=== PATIENT | male | born 1955 | race Caucasian/White ===

== ENCOUNTER 2020-05-28 20:15 | Inpatient (IN) | payer MEDICARE, MEDICAID ==
[2020-05-28] MEDS: Sodium Chloride 0.9% 1,000 ML IV SCH (22:30)
[2020-05-28] MEDS ORDERED: Dextrose 50% Abboject 50 ML SYRINGE IVP PRN (22:30)
[2020-05-28] MEDS ORDERED: Dextrose 5% in Water 1,000 ML IV PRN (22:30)
[2020-05-28] MEDS ORDERED: Zolpidem Tartrate 5 MG TAB PO SCH (23:00)
[2020-05-28] MEDS: HYDROcodone/Acetaminophen 5/325 mg Tablet PO PRN (23:19)
[2020-05-29] MEDS: Vancomycin 1.5 GRAM/300 ML BAG 1.5 GM in Premix Bag 1 BAG IVPB SCH ×2 (00:51→13:46)
[2020-05-29 05:19] LABS: Anion Gap 12 mmol/L (10-20); BUN (Urea Nitrogen) 9 mg/dL (8.4-25.7); Calc. Creatinine Clearance 160 mL/min (70-130); Calcium 8.4 mg/dL (7.8-10.44); Carbon Dioxide 25 mmol/L (23-31); Chloride 100 mmol/L (98-107); Glucose 218 mg/dL (80-115); Potassium 4.2 mmol/L (3.5-5.1); Sodium 133 mmol/L (136-145)
[2020-05-29 05:30] LABS: Band 16 % (5-11); Eosinophils 7 % (0-10); Hemoglobin 9.5 g/dL (14.0-18.0); Lymphocytes 32 % (21-51); MDiff Complete? YES; Mean Corpuscular Hemoglobin 29.4 pg (27.0-31.0); Mean Corpuscular Volume 91.8 fL (78.0-98.0); Mean Platelet Volume 6.4 fL (7.4-10.4); Metamyelocyte 6 % (0-0); Monocytes 7 % (0-10); Neutrophil 32 % (42-75); Platelet Count 182 thou/uL (130-400); Platelet Morphology Comment Appears Adequate; RBC Distribution Width 14.1 % (11.5-14.5); RBC Morphology Normal; Red Blood Cell (RBC) Count 3.22 mill/uL (4.70-6.10); White Blood Cell (WBC) Count 3.3 thou/uL (4.8-10.8)
[2020-05-29] MEDS: Levothyroxine 150 MCG TAB PO SCH (06:15)
[2020-05-29] MEDS: HYDROcodone/Acetaminophen 5/325 mg Tablet PO PRN ×3 (06:26→20:52)
[2020-05-29] MEDS: HumaLOG 300 UNITS/3 ML VIAL SC PRN ×3 (06:27→17:11)
[2020-05-29] MEDS ORDERED: Nicotine 14 MG PATCH TOP SCH (09:00)
[2020-05-29] MEDS: Finasteride 5 MG TAB PO SCH (09:12)
[2020-05-29] MEDS: Multivitamin W/ Minerals 1 TAB PO SCH (09:12)
[2020-05-29] MEDS: Famotidine 20 MG TAB PO SCH ×2 (09:13→20:50)
[2020-05-29] MEDS: Amlodipine 5 MG TAB PO SCH (09:13)
[2020-05-29] MEDS: Thiamine 100 MG TAB PO SCH (09:13)
[2020-05-29] MEDS: Aspirin 81 mg Enteric Coated Tablet PO SCH (09:14)
[2020-05-29] MEDS: Pioglitazone HCl 15 MG TAB PO SCH (09:14)
[2020-05-29] MEDS: Escitalopram Oxalate 20 mg Tablet PO SCH (09:14)
[2020-05-29] MEDS: Folic Acid 1 MG TAB PO SCH (09:14)
[2020-05-29] MEDS: Senokot S 8.6-50 MG TAB PO SCH ×2 (09:15→20:50)
[2020-05-29] MEDS: Lisinopril 20 MG TAB PO SCH ×2 (09:15→20:50)
[2020-05-29] MEDS: Polyethylene Glycol 3350 17 GM Packet PO SCH (09:15)
[2020-05-29] MEDS: Enoxaparin Sodium 40 MG/0.4 ML SYRINGE SC SCH (09:18)
[2020-05-29] MEDS: Lantus 1000 UNITS/10 ML VIAL SC SCH ×2 (09:20→20:47)
[2020-05-29] MEDS: Ondansetron PF 4 MG/2 ML Vial IVP PRN (09:45)
[2020-05-29] MEDS: Sodium Chloride 0.9% 1,000 ML IV SCH ×2 (12:13→19:32)
[2020-05-29] MEDS: cefTRIAXone\\ROCEPHIN 1 GM in Sodium Chloride 0.9% 100 ML IVPB SCH (12:13)
[2020-05-29] MEDS ORDERED: cefTRIAXone\\ROCEPHIN 1 GM VIAL IVPB SCH (15:00)
[2020-05-29] MEDS: Zolpidem Tartrate 5 MG TAB PO SCH (20:49)
[2020-05-29] MEDS: Tamsulosin HCl 0.4 MG CAP PO SCH (20:50)
[2020-05-29] MEDS: Atorvastatin Calcium 40 MG TAB PO SCH (20:52)
[2020-05-29] MEDS ORDERED: Zolpidem Tartrate 5 MG TAB PO SCH (21:00)
[2020-05-29] MEDS ORDERED: Lisinopril 5 MG TAB PO SCH (21:00)
[2020-05-29] MEDS ORDERED: Famotidine 20 MG TAB PO SCH (21:00)
[2020-05-29] MEDS ORDERED: Senokot S 8.6-50 MG TAB PO SCH (21:00)
[2020-05-29] MEDS ORDERED: Tamsulosin HCl 0.4 MG CAP PO SCH (21:00)
[2020-05-29] MEDS ORDERED: Atorvastatin Calcium 40 MG TAB PO SCH (21:00)
[2020-05-29] MEDS ORDERED: Lantus 1000 UNITS/10 ML VIAL SC SCH (21:00)
[2020-05-30] MEDS: Vancomycin 1.5 GRAM/300 ML BAG 1.5 GM in Premix Bag 1 BAG IVPB SCH ×2 (00:50→14:01)
[2020-05-30] MEDS: Sodium Chloride 0.9% 1,000 ML IV SCH ×4 (00:53→23:32)
[2020-05-30] MEDS ORDERED: Vancomycin 1.5 GRAM/300 ML BAG IVPB SCH (01:00)
[2020-05-30] MEDS: Levothyroxine 150 MCG TAB PO SCH (05:08)
[2020-05-30] MEDS: HYDROcodone/Acetaminophen 5/325 mg Tablet PO PRN ×4 (05:08→20:57)
[2020-05-30] MEDS: Morphine 4 MG/ML VIAL SLOW IVP PRN (08:31)
[2020-05-30] MEDS: Lisinopril 20 MG TAB PO SCH ×2 (09:00→20:58)
[2020-05-30] MEDS ORDERED: Multivitamin W/ Minerals 1 TAB PO SCH (09:00)
[2020-05-30] MEDS ORDERED: Aspirin 81 mg Enteric Coated Tablet PO SCH (09:00)
[2020-05-30] MEDS ORDERED: Levothyroxine 150 MCG TAB PO SCH (09:00)
[2020-05-30] MEDS ORDERED: Folic Acid 1 MG TAB PO SCH (09:00)
[2020-05-30] MEDS ORDERED: Finasteride 5 MG TAB PO SCH (09:00)
[2020-05-30] MEDS ORDERED: Amlodipine 5 MG TAB PO SCH (09:00)
[2020-05-30] MEDS ORDERED: Thiamine 100 MG TAB PO SCH (09:00)
[2020-05-30] MEDS ORDERED: Escitalopram Oxalate 20 mg Tablet PO SCH (09:00)
[2020-05-30] MEDS: Folic Acid 1 MG TAB PO SCH (09:00)
[2020-05-30] MEDS ORDERED: Enoxaparin Sodium 40 MG/0.4 ML SYRINGE SC SCH (09:00)
[2020-05-30] MEDS: Pioglitazone HCl 15 MG TAB PO SCH (09:00)
[2020-05-30] MEDS: Multivitamin W/ Minerals 1 TAB PO SCH (09:01)
[2020-05-30] MEDS: Famotidine 20 MG TAB PO SCH ×2 (09:01→20:56)
[2020-05-30] MEDS: Escitalopram Oxalate 20 mg Tablet PO SCH (09:01)
[2020-05-30] MEDS: Senokot S 8.6-50 MG TAB PO SCH ×2 (09:01→20:56)
[2020-05-30] MEDS: Aspirin 81 mg Enteric Coated Tablet PO SCH (09:01)
[2020-05-30] MEDS: Finasteride 5 MG TAB PO SCH (09:01)
[2020-05-30] MEDS: Thiamine 100 MG TAB PO SCH (09:02)
[2020-05-30] MEDS: Amlodipine 5 MG TAB PO SCH (09:02)
[2020-05-30] MEDS: Enoxaparin Sodium 40 MG/0.4 ML SYRINGE SC SCH (09:03)
[2020-05-30] MEDS: Lantus 1000 UNITS/10 ML VIAL SC SCH ×2 (09:04→20:59)
[2020-05-30] MEDS: Polyethylene Glycol 3350 17 GM Packet PO SCH (09:04)
[2020-05-30] MEDS: cefTRIAXone\\ROCEPHIN 1 GM in Sodium Chloride 0.9% 100 ML IVPB SCH (11:59)
[2020-05-30] MEDS: HumaLOG 300 UNITS/3 ML VIAL SC PRN ×3 (12:00→20:59)
[2020-05-30 12:26] LABS: Vancomycin, Trough 14.1 ug/mL
[2020-05-30] MEDS: Tamsulosin HCl 0.4 MG CAP PO SCH (20:56)
[2020-05-30] MEDS: Atorvastatin Calcium 40 MG TAB PO SCH (20:56)
[2020-05-30] MEDS: Zolpidem Tartrate 5 MG TAB PO SCH (20:58)
[2020-05-31] MEDS: Vancomycin 1.5 GRAM/300 ML BAG 1.5 GM in Premix Bag 1 BAG IVPB SCH ×2 (01:02→13:30)
[2020-05-31] MEDS: HYDROcodone/Acetaminophen 5/325 mg Tablet PO PRN ×4 (02:49→20:53)
[2020-05-31] MEDS: HumaLOG 300 UNITS/3 ML VIAL SC PRN ×3 (06:13→20:54)
[2020-05-31] MEDS: Levothyroxine 150 MCG TAB PO SCH (06:13)
[2020-05-31] MEDS: Enoxaparin Sodium 40 MG/0.4 ML SYRINGE SC SCH (08:41)
[2020-05-31] MEDS: Lisinopril 20 MG TAB PO SCH ×2 (08:41→20:52)
[2020-05-31] MEDS: Multivitamin W/ Minerals 1 TAB PO SCH (08:41)
[2020-05-31] MEDS: Famotidine 20 MG TAB PO SCH ×2 (08:42→20:52)
[2020-05-31] MEDS: Folic Acid 1 MG TAB PO SCH (08:42)
[2020-05-31] MEDS: Thiamine 100 MG TAB PO SCH (08:42)
[2020-05-31] MEDS: Escitalopram Oxalate 20 mg Tablet PO SCH (08:42)
[2020-05-31] MEDS: Aspirin 81 mg Enteric Coated Tablet PO SCH (08:42)
[2020-05-31] MEDS: Amlodipine 5 MG TAB PO SCH (08:42)
[2020-05-31] MEDS: Pioglitazone HCl 15 MG TAB PO SCH (08:42)
[2020-05-31] MEDS: Finasteride 5 MG TAB PO SCH (08:42)
[2020-05-31] MEDS: Lantus 1000 UNITS/10 ML VIAL SC SCH ×2 (08:44→20:54)
[2020-05-31] MEDS: Senokot S 8.6-50 MG TAB PO SCH ×2 (08:44→20:52)
[2020-05-31] MEDS: Polyethylene Glycol 3350 17 GM Packet PO SCH (08:44)
[2020-05-31] MEDS: Sodium Chloride 0.9% 1,000 ML IV SCH ×3 (08:58→23:23)
[2020-05-31] MEDS: cefTRIAXone\\ROCEPHIN 1 GM in Sodium Chloride 0.9% 100 ML IVPB SCH (12:08)
[2020-05-31] MEDS: Tamsulosin HCl 0.4 MG CAP PO SCH (20:52)
[2020-05-31] MEDS: Zolpidem Tartrate 5 MG TAB PO SCH (20:52)
[2020-05-31] MEDS: Atorvastatin Calcium 40 MG TAB PO SCH (20:52)
[2020-06-01] MEDS: Vancomycin 1.5 GRAM/300 ML BAG 1.5 GM in Premix Bag 1 BAG IVPB SCH ×3 (01:13→13:22)
[2020-06-01] MEDS: Sodium Chloride 0.9% 1,000 ML IV SCH ×2 (01:13→07:00)
[2020-06-01] MEDS: HYDROcodone/Acetaminophen 5/325 mg Tablet PO PRN ×3 (03:28→17:29)
[2020-06-01] MEDS: Levothyroxine 150 MCG TAB PO SCH (06:15)
[2020-06-01] MEDS: HumaLOG 300 UNITS/3 ML VIAL SC PRN ×3 (06:15→20:55)
[2020-06-01] MEDS: Amlodipine 5 MG TAB PO SCH (09:20)
[2020-06-01] MEDS: Folic Acid 1 MG TAB PO SCH (09:20)
[2020-06-01] MEDS: Finasteride 5 MG TAB PO SCH (09:20)
[2020-06-01] MEDS: Thiamine 100 MG TAB PO SCH (09:20)
[2020-06-01] MEDS: Multivitamin W/ Minerals 1 TAB PO SCH (09:20)
[2020-06-01] MEDS: Famotidine 20 MG TAB PO SCH ×2 (09:20→20:56)
[2020-06-01] MEDS: Pioglitazone HCl 15 MG TAB PO SCH (09:20)
[2020-06-01] MEDS: Aspirin 81 mg Enteric Coated Tablet PO SCH (09:21)
[2020-06-01] MEDS: Lisinopril 20 MG TAB PO SCH ×2 (09:21→20:56)
[2020-06-01] MEDS: Escitalopram Oxalate 20 mg Tablet PO SCH (09:21)
[2020-06-01] MEDS: Lantus 1000 UNITS/10 ML VIAL SC SCH ×2 (09:22→20:54)
[2020-06-01] MEDS: Enoxaparin Sodium 40 MG/0.4 ML SYRINGE SC SCH (09:22)
[2020-06-01] MEDS: Polyethylene Glycol 3350 17 GM Packet PO SCH (09:23)
[2020-06-01] MEDS: Senokot S 8.6-50 MG TAB PO SCH ×2 (09:23→20:57)
[2020-06-01 12:22] LABS: Carbon Dioxide 18 mmol/L (23-31); Chloride 104 mmol/L (98-107); Potassium 4.8 mmol/L (3.5-5.1)
[2020-06-01 12:23] LABS: BUN (Urea Nitrogen) 12 mg/dL (8.4-25.7); Calc. Creatinine Clearance 162 mL/min (70-130); Glucose 212 mg/dL (80-115)
[2020-06-01 12:24] LABS: Calcium 8.2 mg/dL (7.8-10.44)
[2020-06-01] MEDS: cefTRIAXone\\ROCEPHIN 1 GM in Sodium Chloride 0.9% 100 ML IVPB SCH (12:31)
[2020-06-01 12:41] LABS: Band 9 % (5-11); Eosinophils 7 % (0-10); Hemoglobin 9.7 g/dL (14.0-18.0); Lymphocytes 53 % (21-51); MDiff Complete? YES; Mean Corpuscular Hemoglobin 30.7 pg (27.0-31.0); Mean Corpuscular Volume 92.9 fL (78.0-98.0); Mean Platelet Volume 7.1 fL (7.4-10.4); Monocytes 9 % (0-10); Myelocyte 1 % (0-0); Neutrophil 19 % (42-75); Platelet Count 152 thou/uL (130-400); Platelet Morphology Comment Appears Adequate; RBC Distribution Width 14.1 % (11.5-14.5); Reactive Lymphocytes 2 % (0-10); Red Blood Cell (RBC) Count 3.15 mill/uL (4.70-6.10)
[2020-06-01] MEDS: Zolpidem Tartrate 5 MG TAB PO SCH (20:56)
[2020-06-01] MEDS: Atorvastatin Calcium 40 MG TAB PO SCH (20:56)
[2020-06-01] MEDS: Tamsulosin HCl 0.4 MG CAP PO SCH (20:57)
[2020-06-02] MEDS: Vancomycin 1.5 GRAM/300 ML BAG 1.5 GM in Premix Bag 1 BAG IVPB SCH ×2 (01:20→14:00)
[2020-06-02] MEDS: HYDROcodone/Acetaminophen 5/325 mg Tablet PO PRN ×3 (01:25→19:40)
[2020-06-02] MEDS ORDERED: Sodium Chloride 0.9% 10 ML ONE ×3 (03:40→13:22)
[2020-06-02] MEDS: Levothyroxine 150 MCG TAB PO SCH (05:17)
[2020-06-02 07:45] LABS: Glucose 211 mg/dL (80-115)
[2020-06-02] MEDS: Multivitamin W/ Minerals 1 TAB PO SCH (09:54)
[2020-06-02] MEDS: Finasteride 5 MG TAB PO SCH (09:55)
[2020-06-02] MEDS: Famotidine 20 MG TAB PO SCH ×2 (09:55→20:52)
[2020-06-02] MEDS: Lisinopril 20 MG TAB PO SCH ×2 (09:55→20:51)
[2020-06-02] MEDS: Pioglitazone HCl 15 MG TAB PO SCH (09:56)
[2020-06-02] MEDS: Thiamine 100 MG TAB PO SCH (09:56)
[2020-06-02] MEDS: Folic Acid 1 MG TAB PO SCH (09:56)
[2020-06-02] MEDS: Escitalopram Oxalate 20 mg Tablet PO SCH (09:56)
[2020-06-02] MEDS: Aspirin 81 mg Enteric Coated Tablet PO SCH (09:57)
[2020-06-02] MEDS: Amlodipine 5 MG TAB PO SCH (09:57)
[2020-06-02] MEDS: Lantus 1000 UNITS/10 ML VIAL SC SCH ×2 (09:58→20:52)
[2020-06-02] MEDS: Enoxaparin Sodium 40 MG/0.4 ML SYRINGE SC SCH (09:58)
[2020-06-02] MEDS: HumaLOG 300 UNITS/3 ML VIAL SC PRN ×3 (09:59→17:06)
[2020-06-02] MEDS: Polyethylene Glycol 3350 17 GM Packet PO SCH (10:04)
[2020-06-02] MEDS: Senokot S 8.6-50 MG TAB PO SCH ×2 (10:04→20:52)
[2020-06-02] MEDS: cefTRIAXone\\ROCEPHIN 1 GM in Sodium Chloride 0.9% 100 ML IVPB SCH (12:03)
[2020-06-02 12:43] LABS: Vancomycin, Trough 15.2 ug/mL
[2020-06-02] MEDS: Morphine 4 MG/ML VIAL SLOW IVP PRN (13:23)
[2020-06-02] MEDS: Zolpidem Tartrate 5 MG TAB PO SCH (20:51)
[2020-06-02] MEDS: Atorvastatin Calcium 40 MG TAB PO SCH (20:52)
[2020-06-02] MEDS: Tamsulosin HCl 0.4 MG CAP PO SCH (20:53)
[2020-06-03] MEDS ORDERED: Sodium Chloride 0.9% 10 ML ONE (00:30)
[2020-06-03] MEDS: HYDROcodone/Acetaminophen 5/325 mg Tablet PO PRN ×4 (01:01→20:08)
[2020-06-03] MEDS: Vancomycin 1.5 GRAM/300 ML BAG 1.5 GM in Premix Bag 1 BAG IVPB SCH ×2 (01:04→12:52)
[2020-06-03] MEDS: Levothyroxine 150 MCG TAB PO SCH (05:02)
[2020-06-03] MEDS: HumaLOG 300 UNITS/3 ML VIAL SC PRN ×3 (05:06→17:30)
[2020-06-03] MEDS: Aspirin 81 mg Enteric Coated Tablet PO SCH (09:10)
[2020-06-03] MEDS: Lisinopril 20 MG TAB PO SCH ×2 (09:10→21:18)
[2020-06-03] MEDS: Thiamine 100 MG TAB PO SCH (09:11)
[2020-06-03] MEDS: Escitalopram Oxalate 20 mg Tablet PO SCH (09:11)
[2020-06-03] MEDS: Senokot S 8.6-50 MG TAB PO SCH ×2 (09:11→21:18)
[2020-06-03] MEDS: Pioglitazone HCl 15 MG TAB PO SCH (09:12)
[2020-06-03] MEDS: Polyethylene Glycol 3350 17 GM Packet PO SCH (09:12)
[2020-06-03] MEDS: Amlodipine 5 MG TAB PO SCH (09:13)
[2020-06-03] MEDS: Finasteride 5 MG TAB PO SCH (09:13)
[2020-06-03] MEDS: Folic Acid 1 MG TAB PO SCH (09:14)
[2020-06-03] MEDS: Famotidine 20 MG TAB PO SCH ×2 (09:14→21:18)
[2020-06-03] MEDS: Enoxaparin Sodium 40 MG/0.4 ML SYRINGE SC SCH (09:14)
[2020-06-03] MEDS: Multivitamin W/ Minerals 1 TAB PO SCH (09:16)
[2020-06-03] MEDS: Lantus 1000 UNITS/10 ML VIAL SC SCH ×2 (09:17→21:17)
[2020-06-03] MEDS: cefTRIAXone\\ROCEPHIN 1 GM in Sodium Chloride 0.9% 100 ML IVPB SCH (12:05)
[2020-06-03] MEDS: Tamsulosin HCl 0.4 MG CAP PO SCH (21:17)
[2020-06-03] MEDS: Zolpidem Tartrate 5 MG TAB PO SCH (21:18)
[2020-06-03] MEDS: Atorvastatin Calcium 40 MG TAB PO SCH (21:18)
[2020-06-04] MEDS: Vancomycin 1.5 GRAM/300 ML BAG 1.5 GM in Premix Bag 1 BAG IVPB SCH ×2 (00:32→12:04)
[2020-06-04] MEDS: HYDROcodone/Acetaminophen 5/325 mg Tablet PO PRN ×3 (05:12→21:00)
[2020-06-04] MEDS: Levothyroxine 150 MCG TAB PO SCH (05:12)
[2020-06-04] MEDS: HumaLOG 300 UNITS/3 ML VIAL SC PRN ×3 (06:00→18:32)
[2020-06-04 07:54] LABS: #Basophils 0.1 thou/uL (0.0-0.2); #Eosinphils 0.2 thou/uL (0.0-0.7); #Lymphocytes 0.9 thou/uL (1.20-3.40); #Neutrophils 0.6 thou/uL (1.40-6.50); %Basophils 2.4 % (0.0-1.0); %Eosinophils 7.8 % (0.0-10.0); %Lymphocytes 32.2 % (21.0-51.0); %Neutrophils 22.6 % (42.0-75.0); Hemoglobin 9.9 g/dL (14.0-18.0); Mean Corpuscular HGB CONC 32.3 g/dL (32.0-36.0); Mean Corpuscular Hemoglobin 29.2 pg (27.0-31.0); Mean Corpuscular Volume 90.6 fL (78.0-98.0); Mean Platelet Volume 6.6 fL (7.4-10.4); Platelet Count 225 thou/uL (130-400); RBC Distribution Width 13.7 % (11.5-14.5); Red Blood Cell (RBC) Count 3.37 mill/uL (4.70-6.10); White Blood Cell (WBC) Count 2.7 thou/uL (4.8-10.8)
[2020-06-04 08:00] LABS: Anion Gap 14 mmol/L (10-20); BUN (Urea Nitrogen) 13 mg/dL (8.4-25.7); Calc. Creatinine Clearance 95 mL/min (70-130); Calcium 8.9 mg/dL (7.8-10.44); Carbon Dioxide 25 mmol/L (23-31); Chloride 95 mmol/L (98-107); Glucose 188 mg/dL (80-115); Potassium 4.5 mmol/L (3.5-5.1); Sodium 129 mmol/L (136-145)
[2020-06-04] MEDS: Lisinopril 20 MG TAB PO SCH ×2 (09:02→20:59)
[2020-06-04] MEDS: Amlodipine 5 MG TAB PO SCH (09:03)
[2020-06-04] MEDS: Famotidine 20 MG TAB PO SCH ×2 (09:03→20:59)
[2020-06-04] MEDS: Folic Acid 1 MG TAB PO SCH (09:03)
[2020-06-04] MEDS: Multivitamin W/ Minerals 1 TAB PO SCH (09:03)
[2020-06-04] MEDS: Pioglitazone HCl 15 MG TAB PO SCH (09:03)
[2020-06-04] MEDS: Aspirin 81 mg Enteric Coated Tablet PO SCH (09:03)
[2020-06-04] MEDS: Escitalopram Oxalate 20 mg Tablet PO SCH (09:03)
[2020-06-04] MEDS: Thiamine 100 MG TAB PO SCH (09:03)
[2020-06-04] MEDS: Finasteride 5 MG TAB PO SCH (09:03)
[2020-06-04] MEDS: Polyethylene Glycol 3350 17 GM Packet PO SCH (09:04)
[2020-06-04] MEDS: Senokot S 8.6-50 MG TAB PO SCH ×2 (09:04→20:59)
[2020-06-04] MEDS: Lantus 1000 UNITS/10 ML VIAL SC SCH ×2 (09:06→20:58)
[2020-06-04] MEDS: Enoxaparin Sodium 40 MG/0.4 ML SYRINGE SC SCH (09:06)
[2020-06-04] MEDS: Morphine 4 MG/ML VIAL SLOW IVP PRN (09:15)
[2020-06-04] MEDS: cefTRIAXone\\ROCEPHIN 1 GM in Sodium Chloride 0.9% 100 ML IVPB SCH (11:54)
[2020-06-04] MEDS: Tamsulosin HCl 0.4 MG CAP PO SCH (20:59)
[2020-06-04] MEDS: Zolpidem Tartrate 5 MG TAB PO SCH (20:59)
[2020-06-04] MEDS: Atorvastatin Calcium 40 MG TAB PO SCH (20:59)
[2020-06-04] MEDS: busPIRone HCl 5 MG TAB PO SCH (21:00)
[2020-06-05] MEDS: Vancomycin 1.5 GRAM/300 ML BAG 1.5 GM in Premix Bag 1 BAG IVPB SCH ×2 (00:44→12:35)
[2020-06-05] MEDS: Levothyroxine 150 MCG TAB PO SCH (06:04)
[2020-06-05] MEDS: HYDROcodone/Acetaminophen 5/325 mg Tablet PO PRN ×4 (06:04→19:49)
[2020-06-05] MEDS: Lisinopril 20 MG TAB PO SCH ×2 (09:11→20:49)
[2020-06-05] MEDS: Finasteride 5 MG TAB PO SCH (09:12)
[2020-06-05] MEDS: Famotidine 20 MG TAB PO SCH ×2 (09:12→20:50)
[2020-06-05] MEDS: Pioglitazone HCl 15 MG TAB PO SCH (09:12)
[2020-06-05] MEDS: Folic Acid 1 MG TAB PO SCH (09:12)
[2020-06-05] MEDS: Aspirin 81 mg Enteric Coated Tablet PO SCH (09:12)
[2020-06-05] MEDS: Thiamine 100 MG TAB PO SCH (09:12)
[2020-06-05] MEDS: Amlodipine 5 MG TAB PO SCH (09:13)
[2020-06-05] MEDS: busPIRone HCl 5 MG TAB PO SCH ×2 (09:13→20:50)
[2020-06-05] MEDS: Enoxaparin Sodium 40 MG/0.4 ML SYRINGE SC SCH (09:13)
[2020-06-05] MEDS: Escitalopram Oxalate 20 mg Tablet PO SCH (09:13)
[2020-06-05] MEDS: Multivitamin W/ Minerals 1 TAB PO SCH (09:13)
[2020-06-05] MEDS: Senokot S 8.6-50 MG TAB PO SCH ×2 (09:15→20:49)
[2020-06-05] MEDS: Polyethylene Glycol 3350 17 GM Packet PO SCH (09:15)
[2020-06-05] MEDS: Lantus 1000 UNITS/10 ML VIAL SC SCH ×2 (09:16→20:53)
[2020-06-05] MEDS: cefTRIAXone\\ROCEPHIN 1 GM in Sodium Chloride 0.9% 100 ML IVPB SCH (12:08)
[2020-06-05] MEDS: HumaLOG 300 UNITS/3 ML VIAL SC PRN ×2 (12:09→20:58)
[2020-06-05] MEDS: Zolpidem Tartrate 5 MG TAB PO SCH (20:50)
[2020-06-05] MEDS: Tamsulosin HCl 0.4 MG CAP PO SCH (20:50)
[2020-06-05] MEDS: Atorvastatin Calcium 40 MG TAB PO SCH (20:50)
[2020-06-06] MEDS: Vancomycin 1.5 GRAM/300 ML BAG 1.5 GM in Premix Bag 1 BAG IVPB SCH ×2 (01:25→13:55)
[2020-06-06] MEDS: HYDROcodone/Acetaminophen 5/325 mg Tablet PO PRN ×4 (05:07→23:06)
[2020-06-06] MEDS: Levothyroxine 150 MCG TAB PO SCH (05:15)
[2020-06-06] MEDS: Thiamine 100 MG TAB PO SCH (08:50)
[2020-06-06] MEDS: Lisinopril 20 MG TAB PO SCH ×2 (08:50→20:37)
[2020-06-06] MEDS: Pioglitazone HCl 15 MG TAB PO SCH (08:51)
[2020-06-06] MEDS: busPIRone HCl 5 MG TAB PO SCH ×2 (08:51→20:37)
[2020-06-06] MEDS: Famotidine 20 MG TAB PO SCH ×2 (08:51→20:37)
[2020-06-06] MEDS: Escitalopram Oxalate 20 mg Tablet PO SCH (08:51)
[2020-06-06] MEDS: Amlodipine 5 MG TAB PO SCH (08:51)
[2020-06-06] MEDS: Lantus 1000 UNITS/10 ML VIAL SC SCH ×2 (08:52→20:39)
[2020-06-06] MEDS: Multivitamin W/ Minerals 1 TAB PO SCH (08:52)
[2020-06-06] MEDS: Enoxaparin Sodium 40 MG/0.4 ML SYRINGE SC SCH (08:52)
[2020-06-06] MEDS: Folic Acid 1 MG TAB PO SCH (08:52)
[2020-06-06] MEDS: Polyethylene Glycol 3350 17 GM Packet PO SCH (08:53)
[2020-06-06] MEDS: Finasteride 5 MG TAB PO SCH (08:53)
[2020-06-06] MEDS: Aspirin 81 mg Enteric Coated Tablet PO SCH (08:53)
[2020-06-06] MEDS: Senokot S 8.6-50 MG TAB PO SCH ×2 (08:53→20:38)
[2020-06-06] MEDS ORDERED: Sodium Chloride 0.9% 10 ML ONE (09:26)
[2020-06-06] MEDS: Morphine 4 MG/ML VIAL SLOW IVP PRN (09:28)
[2020-06-06] MEDS: cefTRIAXone\\ROCEPHIN 1 GM in Sodium Chloride 0.9% 100 ML IVPB SCH (12:09)
[2020-06-06] MEDS: HumaLOG 300 UNITS/3 ML VIAL SC PRN ×2 (12:10→16:56)
[2020-06-06 13:30] LABS: Vancomycin, Trough 15.6 ug/mL
[2020-06-06] MEDS: Atorvastatin Calcium 40 MG TAB PO SCH (20:36)
[2020-06-06] MEDS: Zolpidem Tartrate 5 MG TAB PO SCH (20:36)
[2020-06-06] MEDS: Tamsulosin HCl 0.4 MG CAP PO SCH (20:37)
[2020-06-07] MEDS: Vancomycin 1.5 GRAM/300 ML BAG 1.5 GM in Premix Bag 1 BAG IVPB SCH ×2 (01:13→14:02)
[2020-06-07] MEDS: HYDROcodone/Acetaminophen 5/325 mg Tablet PO PRN ×3 (06:06→19:54)
[2020-06-07] MEDS: Levothyroxine 150 MCG TAB PO SCH (06:07)
[2020-06-07] MEDS: Enoxaparin Sodium 40 MG/0.4 ML SYRINGE SC SCH (09:45)
[2020-06-07] MEDS: Folic Acid 1 MG TAB PO SCH (09:46)
[2020-06-07] MEDS: Lisinopril 20 MG TAB PO SCH ×2 (09:46→19:54)
[2020-06-07] MEDS: busPIRone HCl 5 MG TAB PO SCH ×2 (09:47→19:56)
[2020-06-07] MEDS: Escitalopram Oxalate 20 mg Tablet PO SCH (09:47)
[2020-06-07] MEDS: Famotidine 20 MG TAB PO SCH ×2 (09:47→19:56)
[2020-06-07] MEDS: Amlodipine 5 MG TAB PO SCH (09:47)
[2020-06-07] MEDS: Thiamine 100 MG TAB PO SCH (09:48)
[2020-06-07] MEDS: Multivitamin W/ Minerals 1 TAB PO SCH (09:48)
[2020-06-07] MEDS: Pioglitazone HCl 15 MG TAB PO SCH (09:48)
[2020-06-07] MEDS: Aspirin 81 mg Enteric Coated Tablet PO SCH (09:48)
[2020-06-07] MEDS: Lantus 1000 UNITS/10 ML VIAL SC SCH ×2 (09:48→19:59)
[2020-06-07] MEDS: Finasteride 5 MG TAB PO SCH (09:48)
[2020-06-07] MEDS: Senokot S 8.6-50 MG TAB PO SCH ×2 (09:50→19:57)
[2020-06-07] MEDS: Polyethylene Glycol 3350 17 GM Packet PO SCH (09:50)
[2020-06-07] MEDS: Nicotine 14 MG PATCH TD PRN (09:50)
[2020-06-07] MEDS ORDERED: Sodium Chloride 0.9% 10 ML ONE (12:22)
[2020-06-07] MEDS: cefTRIAXone\\ROCEPHIN 1 GM in Sodium Chloride 0.9% 100 ML IVPB SCH (12:31)
[2020-06-07] MEDS: HumaLOG 300 UNITS/3 ML VIAL SC PRN ×3 (12:32→19:59)
[2020-06-07] MEDS: Tamsulosin HCl 0.4 MG CAP PO SCH (19:55)
[2020-06-07] MEDS: Atorvastatin Calcium 40 MG TAB PO SCH (19:56)
[2020-06-07] MEDS: Zolpidem Tartrate 5 MG TAB PO SCH (21:29)
[2020-06-08] MEDS: Vancomycin 1.5 GRAM/300 ML BAG 1.5 GM in Premix Bag 1 BAG IVPB SCH ×2 (01:01→13:11)
[2020-06-08] MEDS: HYDROcodone/Acetaminophen 5/325 mg Tablet PO PRN ×3 (06:51→20:11)
[2020-06-08] MEDS: Levothyroxine 150 MCG TAB PO SCH (06:52)
[2020-06-08] MEDS ORDERED: Sodium Chloride 0.9% 10 ML ONE (07:55)
[2020-06-08] MEDS: Aspirin 81 mg Enteric Coated Tablet PO SCH (08:12)
[2020-06-08] MEDS: Multivitamin W/ Minerals 1 TAB PO SCH (08:12)
[2020-06-08] MEDS: Pioglitazone HCl 15 MG TAB PO SCH (08:12)
[2020-06-08] MEDS: Ondansetron PF 4 MG/2 ML Vial IVP PRN (08:12)
[2020-06-08] MEDS: Finasteride 5 MG TAB PO SCH (08:12)
[2020-06-08] MEDS: Folic Acid 1 MG TAB PO SCH (08:14)
[2020-06-08] MEDS: Escitalopram Oxalate 20 mg Tablet PO SCH (08:14)
[2020-06-08] MEDS: Thiamine 100 MG TAB PO SCH (08:14)
[2020-06-08] MEDS: Enoxaparin Sodium 40 MG/0.4 ML SYRINGE SC SCH (08:15)
[2020-06-08] MEDS: busPIRone HCl 5 MG TAB PO SCH ×2 (08:15→20:07)
[2020-06-08] MEDS: Lantus 1000 UNITS/10 ML VIAL SC SCH ×2 (08:16→20:08)
[2020-06-08] MEDS: HumaLOG 300 UNITS/3 ML VIAL SC PRN ×4 (08:16→20:09)
[2020-06-08] MEDS: Senokot S 8.6-50 MG TAB PO SCH ×2 (08:17→20:19)
[2020-06-08] MEDS: Polyethylene Glycol 3350 17 GM Packet PO SCH (08:17)
[2020-06-08] MEDS: Nicotine 14 MG PATCH TD PRN (08:20)
[2020-06-08] MEDS ORDERED: Lidocaine 3%/Hydrocortisone 0.5% CREAM TP PRN (08:28)
[2020-06-08] MEDS: Amlodipine 5 MG TAB PO SCH (08:29)
[2020-06-08] MEDS: Lisinopril 20 MG TAB PO SCH ×2 (08:30→20:07)
[2020-06-08] MEDS ORDERED: Famotidine 20 MG TAB PO SCH (10:00)
[2020-06-08] MEDS: cefTRIAXone\\ROCEPHIN 1 GM in Sodium Chloride 0.9% 100 ML IVPB SCH (12:10)
[2020-06-08] MEDS: Atorvastatin Calcium 40 MG TAB PO SCH (20:07)
[2020-06-08] MEDS: Famotidine 20 MG TAB PO SCH (20:07)
[2020-06-08] MEDS: Tamsulosin HCl 0.4 MG CAP PO SCH (20:07)
[2020-06-08] MEDS: Zolpidem Tartrate 5 MG TAB PO SCH (23:09)
[2020-06-09] MEDS: Vancomycin 1.5 GRAM/300 ML BAG 1.5 GM in Premix Bag 1 BAG IVPB SCH ×2 (00:33→12:00)
[2020-06-09] MEDS: HYDROcodone/Acetaminophen 5/325 mg Tablet PO PRN ×3 (03:57→17:51)
[2020-06-09] MEDS: Levothyroxine Sodium 75 MCG TAB PO SCH (05:31)
[2020-06-09] MEDS: Levothyroxine Sodium 100 MCG TAB PO SCH (05:31)
[2020-06-09] MEDS: HumaLOG 300 UNITS/3 ML VIAL SC PRN ×4 (05:33→20:22)
[2020-06-09] MEDS: Amlodipine 5 MG TAB PO SCH (08:48)
[2020-06-09] MEDS: busPIRone HCl 5 MG TAB PO SCH ×2 (08:49→20:20)
[2020-06-09] MEDS: Aspirin 81 mg Enteric Coated Tablet PO SCH (08:49)
[2020-06-09] MEDS: Folic Acid 1 MG TAB PO SCH (08:50)
[2020-06-09] MEDS: Enoxaparin Sodium 40 MG/0.4 ML SYRINGE SC SCH (08:50)
[2020-06-09] MEDS: Finasteride 5 MG TAB PO SCH (08:50)
[2020-06-09] MEDS: Escitalopram Oxalate 20 mg Tablet PO SCH (08:50)
[2020-06-09] MEDS: Famotidine 20 MG TAB PO SCH ×2 (08:50→20:21)
[2020-06-09] MEDS: Lantus 1000 UNITS/10 ML VIAL SC SCH ×2 (08:51→20:23)
[2020-06-09] MEDS: Lisinopril 20 MG TAB PO SCH ×2 (08:51→20:21)
[2020-06-09] MEDS: Senokot S 8.6-50 MG TAB PO SCH ×2 (08:52→20:22)
[2020-06-09] MEDS: Thiamine 100 MG TAB PO SCH (08:52)
[2020-06-09] MEDS: Polyethylene Glycol 3350 17 GM Packet PO SCH (08:52)
[2020-06-09] MEDS: Multivitamin W/ Minerals 1 TAB PO SCH (08:52)
[2020-06-09] MEDS: Pioglitazone HCl 15 MG TAB PO SCH (08:52)
[2020-06-09] MEDS: cefTRIAXone\\ROCEPHIN 1 GM in Sodium Chloride 0.9% 100 ML IVPB SCH (11:59)
[2020-06-09] MEDS: Morphine 4 MG/ML VIAL SLOW IVP PRN (13:24)
[2020-06-09] MEDS: Tamsulosin HCl 0.4 MG CAP PO SCH (20:20)
[2020-06-09] MEDS: Atorvastatin Calcium 40 MG TAB PO SCH (20:21)
[2020-06-09] MEDS: Zolpidem Tartrate 5 MG TAB PO SCH (21:32)
[2020-06-10] MEDS: Vancomycin 1.5 GRAM/300 ML BAG 1.5 GM in Premix Bag 1 BAG IVPB SCH ×2 (01:02→12:27)
[2020-06-10] MEDS: HYDROcodone/Acetaminophen 5/325 mg Tablet PO PRN ×4 (03:05→15:43)
[2020-06-10] MEDS: Levothyroxine Sodium 75 MCG TAB PO SCH (06:22)
[2020-06-10] MEDS: HumaLOG 300 UNITS/3 ML VIAL SC PRN ×3 (06:22→17:41)
[2020-06-10] MEDS: Levothyroxine Sodium 100 MCG TAB PO SCH (06:22)
[2020-06-10] MEDS: Amlodipine 5 MG TAB PO SCH (09:08)
[2020-06-10] MEDS: Aspirin 81 mg Enteric Coated Tablet PO SCH (09:08)
[2020-06-10] MEDS: Enoxaparin Sodium 40 MG/0.4 ML SYRINGE SC SCH (09:09)
[2020-06-10] MEDS: busPIRone HCl 5 MG TAB PO SCH ×2 (09:09→20:35)
[2020-06-10] MEDS: Escitalopram Oxalate 20 mg Tablet PO SCH (09:09)
[2020-06-10] MEDS: Famotidine 20 MG TAB PO SCH ×2 (09:10→20:34)
[2020-06-10] MEDS: Lantus 1000 UNITS/10 ML VIAL SC SCH ×2 (09:10→20:37)
[2020-06-10] MEDS: Folic Acid 1 MG TAB PO SCH (09:10)
[2020-06-10] MEDS: Finasteride 5 MG TAB PO SCH (09:10)
[2020-06-10] MEDS: Lisinopril 20 MG TAB PO SCH ×2 (09:11→20:34)
[2020-06-10] MEDS: Multivitamin W/ Minerals 1 TAB PO SCH (09:11)
[2020-06-10] MEDS: Senokot S 8.6-50 MG TAB PO SCH ×2 (09:12→20:34)
[2020-06-10] MEDS: Polyethylene Glycol 3350 17 GM Packet PO SCH (09:12)
[2020-06-10] MEDS: Thiamine 100 MG TAB PO SCH (09:12)
[2020-06-10] MEDS: Pioglitazone HCl 15 MG TAB PO SCH (09:12)
[2020-06-10] MEDS: cefTRIAXone\\ROCEPHIN 1 GM in Sodium Chloride 0.9% 100 ML IVPB SCH (12:25)
[2020-06-10 13:15] LABS: Vancomycin, Trough 14.7 ug/mL
[2020-06-10] MEDS: diphenhydrAMINE 25 MG CAP PO PRN ×2 (17:05→20:35)
[2020-06-10] MEDS: Tamsulosin HCl 0.4 MG CAP PO SCH (20:34)
[2020-06-10] MEDS: Zolpidem Tartrate 5 MG TAB PO SCH (20:35)
[2020-06-10] MEDS: Atorvastatin Calcium 40 MG TAB PO SCH (20:35)
[2020-06-11] MEDS: Vancomycin 1.5 GRAM/300 ML BAG 1.5 GM in Premix Bag 1 BAG IVPB SCH ×2 (00:57→13:04)
[2020-06-11] MEDS: Levothyroxine Sodium 75 MCG TAB PO SCH (05:10)
[2020-06-11] MEDS: HYDROcodone/Acetaminophen 5/325 mg Tablet PO PRN ×3 (05:10→19:20)
[2020-06-11] MEDS: Levothyroxine Sodium 100 MCG TAB PO SCH (05:10)
[2020-06-11] MEDS: Aspirin 81 mg Enteric Coated Tablet PO SCH (09:21)
[2020-06-11] MEDS: Pioglitazone HCl 15 MG TAB PO SCH (09:21)
[2020-06-11] MEDS: Multivitamin W/ Minerals 1 TAB PO SCH (09:22)
[2020-06-11] MEDS: Famotidine 20 MG TAB PO SCH ×2 (09:22→21:39)
[2020-06-11] MEDS: Escitalopram Oxalate 20 mg Tablet PO SCH (09:23)
[2020-06-11] MEDS: Amlodipine 5 MG TAB PO SCH (09:23)
[2020-06-11] MEDS: busPIRone HCl 5 MG TAB PO SCH ×2 (09:23→21:39)
[2020-06-11] MEDS: Thiamine 100 MG TAB PO SCH (09:24)
[2020-06-11] MEDS: Folic Acid 1 MG TAB PO SCH (09:24)
[2020-06-11] MEDS: Lisinopril 20 MG TAB PO SCH ×2 (09:24→21:40)
[2020-06-11] MEDS: Polyethylene Glycol 3350 17 GM Packet PO SCH (09:24)
[2020-06-11] MEDS: Senokot S 8.6-50 MG TAB PO SCH ×2 (09:24→21:40)
[2020-06-11] MEDS: Enoxaparin Sodium 40 MG/0.4 ML SYRINGE SC SCH (09:25)
[2020-06-11] MEDS: Finasteride 5 MG TAB PO SCH (09:25)
[2020-06-11] MEDS: Lantus 1000 UNITS/10 ML VIAL SC SCH ×2 (09:26→21:41)
[2020-06-11] MEDS: Morphine 4 MG/ML VIAL SLOW IVP PRN (10:33)
[2020-06-11] MEDS: cefTRIAXone\\ROCEPHIN 1 GM in Sodium Chloride 0.9% 100 ML IVPB SCH (12:10)
[2020-06-11] MEDS: HumaLOG 300 UNITS/3 ML VIAL SC PRN ×3 (12:12→21:41)
[2020-06-11] MEDS: diphenhydrAMINE 25 MG CAP PO PRN (17:38)
[2020-06-11] MEDS: Zolpidem Tartrate 5 MG TAB PO SCH (21:39)
[2020-06-11] MEDS: Atorvastatin Calcium 40 MG TAB PO SCH (21:39)
[2020-06-11] MEDS: Tamsulosin HCl 0.4 MG CAP PO SCH (21:40)
[2020-06-12] MEDS: Vancomycin 1.5 GRAM/300 ML BAG 1.5 GM in Premix Bag 1 BAG IVPB SCH ×2 (01:35→13:20)
[2020-06-12] MEDS: Levothyroxine Sodium 100 MCG TAB PO SCH (05:56)
[2020-06-12] MEDS: Levothyroxine Sodium 75 MCG TAB PO SCH (05:57)
[2020-06-12] MEDS: HYDROcodone/Acetaminophen 5/325 mg Tablet PO PRN ×3 (07:42→20:50)
[2020-06-12] MEDS: Folic Acid 1 MG TAB PO SCH (08:20)
[2020-06-12] MEDS: Thiamine 100 MG TAB PO SCH (08:20)
[2020-06-12] MEDS: Amlodipine 5 MG TAB PO SCH (08:21)
[2020-06-12] MEDS: Escitalopram Oxalate 20 mg Tablet PO SCH (08:22)
[2020-06-12] MEDS: Lisinopril 20 MG TAB PO SCH ×2 (08:22→20:48)
[2020-06-12] MEDS: Multivitamin W/ Minerals 1 TAB PO SCH (08:22)
[2020-06-12] MEDS: Pioglitazone HCl 15 MG TAB PO SCH (08:22)
[2020-06-12] MEDS: busPIRone HCl 5 MG TAB PO SCH ×2 (08:22→20:48)
[2020-06-12] MEDS: Aspirin 81 mg Enteric Coated Tablet PO SCH (08:23)
[2020-06-12] MEDS: Famotidine 20 MG TAB PO SCH ×2 (08:23→20:48)
[2020-06-12] MEDS: Lantus 1000 UNITS/10 ML VIAL SC SCH ×2 (08:23→20:51)
[2020-06-12] MEDS: Enoxaparin Sodium 40 MG/0.4 ML SYRINGE SC SCH (08:23)
[2020-06-12] MEDS: Finasteride 5 MG TAB PO SCH (08:23)
[2020-06-12] MEDS: Polyethylene Glycol 3350 17 GM Packet PO SCH (08:24)
[2020-06-12] MEDS: Senokot S 8.6-50 MG TAB PO SCH ×2 (08:24→20:49)
[2020-06-12] MEDS: HumaLOG 300 UNITS/3 ML VIAL SC PRN ×2 (12:12→17:12)
[2020-06-12] MEDS: cefTRIAXone\\ROCEPHIN 1 GM in Sodium Chloride 0.9% 100 ML IVPB SCH (12:12)
[2020-06-12] MEDS: Tamsulosin HCl 0.4 MG CAP PO SCH (20:48)
[2020-06-12] MEDS: Atorvastatin Calcium 40 MG TAB PO SCH (20:48)
[2020-06-12] MEDS: Zolpidem Tartrate 5 MG TAB PO SCH (21:43)
[2020-06-13] MEDS: Vancomycin 1.5 GRAM/300 ML BAG 1.5 GM in Premix Bag 1 BAG IVPB SCH ×2 (00:44→12:13)
[2020-06-13] MEDS: HYDROcodone/Acetaminophen 5/325 mg Tablet PO PRN ×4 (03:04→21:44)
[2020-06-13] MEDS: Levothyroxine Sodium 75 MCG TAB PO SCH (05:16)
[2020-06-13] MEDS: Levothyroxine Sodium 100 MCG TAB PO SCH (05:16)
[2020-06-13] MEDS: HumaLOG 300 UNITS/3 ML VIAL SC PRN ×3 (05:19→17:38)
[2020-06-13 05:33] LABS: Anion Gap 14 mmol/L (10-20); BUN (Urea Nitrogen) 21 mg/dL (8.4-25.7); Calc. Creatinine Clearance 133 mL/min (70-130); Calcium 8.9 mg/dL (7.8-10.44); Carbon Dioxide 24 mmol/L (23-31); Chloride 95 mmol/L (98-107); Glucose 254 mg/dL (80-115); Potassium 4.5 mmol/L (3.5-5.1); Sodium 128 mmol/L (136-145)
[2020-06-13 06:28] LABS: #Basophils 0.1 thou/uL (0.0-0.2); #Eosinphils 0.2 thou/uL (0.0-0.7); #Monocytes 0.8 thou/uL (0.11-0.59); #Neutrophils 0.5 thou/uL (1.40-6.50); %Basophils 2.7 % (0.0-1.0); %Eosinophils 6.8 % (0.0-10.0); %Lymphocytes 38.7 % (21.0-51.0); %Monocytes 30.7 % (0.0-10.0); %Neutrophils 21.2 % (42.0-75.0); Hemoglobin 9.7 g/dL (14.0-18.0); Mean Corpuscular HGB CONC 31.9 g/dL (32.0-36.0); Mean Corpuscular Hemoglobin 28.4 pg (27.0-31.0); Platelet Count 222 thou/uL (130-400); RBC Distribution Width 13.4 % (11.5-14.5); Red Blood Cell (RBC) Count 3.42 mill/uL (4.70-6.10); White Blood Cell (WBC) Count 2.6 thou/uL (4.8-10.8)
[2020-06-13] MEDS: Lantus 1000 UNITS/10 ML VIAL SC SCH ×2 (08:59→20:45)
[2020-06-13] MEDS: Pioglitazone HCl 15 MG TAB PO SCH (09:00)
[2020-06-13] MEDS: Enoxaparin Sodium 40 MG/0.4 ML SYRINGE SC SCH (09:00)
[2020-06-13] MEDS: Lisinopril 20 MG TAB PO SCH ×2 (09:01→20:44)
[2020-06-13] MEDS: Famotidine 20 MG TAB PO SCH ×2 (09:01→20:45)
[2020-06-13] MEDS: Amlodipine 5 MG TAB PO SCH (09:01)
[2020-06-13] MEDS: Multivitamin W/ Minerals 1 TAB PO SCH (09:01)
[2020-06-13] MEDS: Folic Acid 1 MG TAB PO SCH (09:01)
[2020-06-13] MEDS: busPIRone HCl 5 MG TAB PO SCH ×2 (09:01→20:44)
[2020-06-13] MEDS: Escitalopram Oxalate 20 mg Tablet PO SCH (09:02)
[2020-06-13] MEDS: Thiamine 100 MG TAB PO SCH (09:02)
[2020-06-13] MEDS: Finasteride 5 MG TAB PO SCH (09:02)
[2020-06-13] MEDS: Polyethylene Glycol 3350 17 GM Packet PO SCH (09:07)
[2020-06-13] MEDS: Senokot S 8.6-50 MG TAB PO SCH ×2 (09:07→20:45)
[2020-06-13] MEDS: Aspirin 81 mg Enteric Coated Tablet PO SCH (09:07)
[2020-06-13] MEDS: Morphine 4 MG/ML VIAL SLOW IVP PRN (12:08)
[2020-06-13] MEDS: cefTRIAXone\\ROCEPHIN 1 GM in Sodium Chloride 0.9% 100 ML IVPB SCH (12:19)
[2020-06-13] MEDS: Atorvastatin Calcium 40 MG TAB PO SCH (20:44)
[2020-06-13] MEDS: Tamsulosin HCl 0.4 MG CAP PO SCH (20:45)
[2020-06-13] MEDS: diphenhydrAMINE 25 MG CAP PO PRN (21:44)
[2020-06-13] MEDS: Zolpidem Tartrate 5 MG TAB PO SCH (21:44)
[2020-06-14] MEDS: Vancomycin 1.5 GRAM/300 ML BAG 1.5 GM in Premix Bag 1 BAG IVPB SCH ×2 (01:07→12:41)
[2020-06-14] MEDS: HYDROcodone/Acetaminophen 5/325 mg Tablet PO PRN ×2 (02:59→09:04)
[2020-06-14] MEDS: Levothyroxine Sodium 100 MCG TAB PO SCH (05:57)
[2020-06-14] MEDS: Levothyroxine Sodium 75 MCG TAB PO SCH (05:58)
[2020-06-14] MEDS: HumaLOG 300 UNITS/3 ML VIAL SC PRN ×4 (06:06→17:14)
[2020-06-14] MEDS: Thiamine 100 MG TAB PO SCH (08:50)
[2020-06-14] MEDS: Pioglitazone HCl 15 MG TAB PO SCH (08:50)
[2020-06-14] MEDS: Lisinopril 20 MG TAB PO SCH ×2 (08:50→21:07)
[2020-06-14] MEDS: Aspirin 81 mg Enteric Coated Tablet PO SCH (08:50)
[2020-06-14] MEDS: Multivitamin W/ Minerals 1 TAB PO SCH (08:50)
[2020-06-14] MEDS: Amlodipine 5 MG TAB PO SCH (08:51)
[2020-06-14] MEDS: Famotidine 20 MG TAB PO SCH ×2 (08:51→21:06)
[2020-06-14] MEDS: busPIRone HCl 5 MG TAB PO SCH ×2 (08:51→21:06)
[2020-06-14] MEDS: Folic Acid 1 MG TAB PO SCH (08:52)
[2020-06-14] MEDS: Enoxaparin Sodium 40 MG/0.4 ML SYRINGE SC SCH (08:52)
[2020-06-14] MEDS: Finasteride 5 MG TAB PO SCH (08:52)
[2020-06-14] MEDS: Escitalopram Oxalate 20 mg Tablet PO SCH (08:52)
[2020-06-14] MEDS: Polyethylene Glycol 3350 17 GM Packet PO SCH (08:53)
[2020-06-14] MEDS: Senokot S 8.6-50 MG TAB PO SCH ×2 (08:53→21:08)
[2020-06-14] MEDS: Lantus 1000 UNITS/10 ML VIAL SC SCH ×2 (09:00→21:10)
[2020-06-14] MEDS: cefTRIAXone\\ROCEPHIN 1 GM in Sodium Chloride 0.9% 100 ML IVPB SCH (11:59)
[2020-06-14] MEDS ORDERED: HYDROcodone/Acetaminophen 7.5/325 mg Tablet PO PRN (12:11)
[2020-06-14 12:36] LABS: Vancomycin, Trough 16.8 ug/mL
[2020-06-14] MEDS: HYDROcodone/Acetaminophen 7.5/325 mg Tablet PO PRN ×2 (15:16→21:08)
[2020-06-14] MEDS: Atorvastatin Calcium 40 MG TAB PO SCH (21:06)
[2020-06-14] MEDS: diphenhydrAMINE 25 MG CAP PO PRN (21:06)
[2020-06-14] MEDS: Tamsulosin HCl 0.4 MG CAP PO SCH (21:06)
[2020-06-14] MEDS: Zolpidem Tartrate 5 MG TAB PO SCH (21:07)
[2020-06-15] MEDS ORDERED: Sodium Chloride 0.9% 30 ML ONE (01:34)
[2020-06-15] MEDS: Vancomycin 1.5 GRAM/300 ML BAG 1.5 GM in Premix Bag 1 BAG IVPB SCH ×2 (01:37→13:10)
[2020-06-15] MEDS ORDERED: Sodium Chloride 0.9% 10 ML ONE (03:18)
[2020-06-15] MEDS: HYDROcodone/Acetaminophen 7.5/325 mg Tablet PO PRN ×4 (03:28→20:59)
[2020-06-15] MEDS: Levothyroxine Sodium 75 MCG TAB PO SCH (05:33)
[2020-06-15] MEDS: Levothyroxine Sodium 100 MCG TAB PO SCH (05:33)
[2020-06-15] MEDS: Multivitamin W/ Minerals 1 TAB PO SCH (08:51)
[2020-06-15] MEDS: busPIRone HCl 5 MG TAB PO SCH ×2 (08:51→21:02)
[2020-06-15] MEDS: Enoxaparin Sodium 40 MG/0.4 ML SYRINGE SC SCH (08:51)
[2020-06-15] MEDS: Lantus 1000 UNITS/10 ML VIAL SC SCH ×2 (08:51→21:01)
[2020-06-15] MEDS: Pioglitazone HCl 15 MG TAB PO SCH (08:52)
[2020-06-15] MEDS: Escitalopram Oxalate 20 mg Tablet PO SCH (08:52)
[2020-06-15] MEDS: Finasteride 5 MG TAB PO SCH (08:52)
[2020-06-15] MEDS: Folic Acid 1 MG TAB PO SCH (08:52)
[2020-06-15] MEDS: Thiamine 100 MG TAB PO SCH (08:52)
[2020-06-15] MEDS: Famotidine 20 MG TAB PO SCH ×2 (08:52→21:02)
[2020-06-15] MEDS: Aspirin 81 mg Enteric Coated Tablet PO SCH (08:52)
[2020-06-15] MEDS: Lisinopril 20 MG TAB PO SCH ×2 (08:52→21:01)
[2020-06-15] MEDS: Amlodipine 5 MG TAB PO SCH (08:53)
[2020-06-15] MEDS: Polyethylene Glycol 3350 17 GM Packet PO SCH (08:54)
[2020-06-15] MEDS: Senokot S 8.6-50 MG TAB PO SCH ×2 (08:54→21:02)
[2020-06-15] MEDS: cefTRIAXone\\ROCEPHIN 1 GM in Sodium Chloride 0.9% 100 ML IVPB SCH (11:21)
[2020-06-15] MEDS: HumaLOG 300 UNITS/3 ML VIAL SC PRN (11:22)
[2020-06-15] MEDS: diphenhydrAMINE 25 MG CAP PO PRN (20:59)
[2020-06-15] MEDS: Zolpidem Tartrate 5 MG TAB PO SCH (21:01)
[2020-06-15] MEDS: Atorvastatin Calcium 40 MG TAB PO SCH (21:01)
[2020-06-15] MEDS: Tamsulosin HCl 0.4 MG CAP PO SCH (21:02)
[2020-06-16] MEDS: Vancomycin 1.5 GRAM/300 ML BAG 1.5 GM in Premix Bag 1 BAG IVPB SCH ×2 (00:24→13:57)
[2020-06-16] MEDS: HYDROcodone/Acetaminophen 7.5/325 mg Tablet PO PRN ×4 (03:40→21:13)
[2020-06-16] MEDS: Levothyroxine Sodium 100 MCG TAB PO SCH (06:10)
[2020-06-16] MEDS: Levothyroxine Sodium 75 MCG TAB PO SCH (06:10)
[2020-06-16] MEDS: Lantus 1000 UNITS/10 ML VIAL SC SCH ×2 (09:29→21:02)
[2020-06-16] MEDS: Enoxaparin Sodium 40 MG/0.4 ML SYRINGE SC SCH (09:29)
[2020-06-16] MEDS: Amlodipine 5 MG TAB PO SCH (09:30)
[2020-06-16] MEDS: Multivitamin W/ Minerals 1 TAB PO SCH (09:30)
[2020-06-16] MEDS: Lisinopril 20 MG TAB PO SCH ×2 (09:30→21:03)
[2020-06-16] MEDS: Thiamine 100 MG TAB PO SCH (09:30)
[2020-06-16] MEDS: Famotidine 20 MG TAB PO SCH ×2 (09:30→21:04)
[2020-06-16] MEDS: Finasteride 5 MG TAB PO SCH (09:30)
[2020-06-16] MEDS: busPIRone HCl 5 MG TAB PO SCH ×2 (09:31→21:03)
[2020-06-16] MEDS: Aspirin 81 mg Enteric Coated Tablet PO SCH (09:31)
[2020-06-16] MEDS: Pioglitazone HCl 15 MG TAB PO SCH (09:31)
[2020-06-16] MEDS: Folic Acid 1 MG TAB PO SCH (09:31)
[2020-06-16] MEDS: Escitalopram Oxalate 20 mg Tablet PO SCH (09:31)
[2020-06-16] MEDS: Polyethylene Glycol 3350 17 GM Packet PO SCH (09:31)
[2020-06-16] MEDS: Senokot S 8.6-50 MG TAB PO SCH ×2 (09:32→21:03)
[2020-06-16] MEDS: cefTRIAXone\\ROCEPHIN 1 GM in Sodium Chloride 0.9% 100 ML IVPB SCH (12:07)
[2020-06-16] MEDS: HumaLOG 300 UNITS/3 ML VIAL SC PRN (12:11)
[2020-06-16] MEDS: Morphine 4 MG/ML VIAL SLOW IVP PRN (12:15)
[2020-06-16] MEDS: diphenhydrAMINE 25 MG CAP PO PRN (14:23)
[2020-06-16] MEDS: Atorvastatin Calcium 40 MG TAB PO SCH (21:04)
[2020-06-16] MEDS: Zolpidem Tartrate 5 MG TAB PO SCH (21:04)
[2020-06-16] MEDS: Tamsulosin HCl 0.4 MG CAP PO SCH (21:04)
[2020-06-17] MEDS: Vancomycin 1.5 GRAM/300 ML BAG 1.5 GM in Premix Bag 1 BAG IVPB SCH ×2 (01:12→13:09)
[2020-06-17] MEDS: HYDROcodone/Acetaminophen 7.5/325 mg Tablet PO PRN ×5 (02:09→22:30)
[2020-06-17] MEDS: Levothyroxine Sodium 100 MCG TAB PO SCH (06:14)
[2020-06-17] MEDS: Levothyroxine Sodium 75 MCG TAB PO SCH (06:14)
[2020-06-17] MEDS: Escitalopram Oxalate 20 mg Tablet PO SCH (07:39)
[2020-06-17] MEDS: Pioglitazone HCl 15 MG TAB PO SCH (07:39)
[2020-06-17] MEDS: busPIRone HCl 5 MG TAB PO SCH ×2 (07:40→20:14)
[2020-06-17] MEDS: Folic Acid 1 MG TAB PO SCH (07:40)
[2020-06-17] MEDS: Finasteride 5 MG TAB PO SCH (07:41)
[2020-06-17] MEDS: Thiamine 100 MG TAB PO SCH (07:42)
[2020-06-17] MEDS: Famotidine 20 MG TAB PO SCH ×2 (07:42→20:10)
[2020-06-17] MEDS: Lisinopril 20 MG TAB PO SCH ×2 (07:42→20:10)
[2020-06-17] MEDS: Amlodipine 5 MG TAB PO SCH (07:43)
[2020-06-17] MEDS: Multivitamin W/ Minerals 1 TAB PO SCH (07:44)
[2020-06-17] MEDS: Lantus 1000 UNITS/10 ML VIAL SC SCH ×2 (07:44→20:16)
[2020-06-17] MEDS: Senokot S 8.6-50 MG TAB PO SCH ×2 (10:13→20:14)
[2020-06-17] MEDS: Polyethylene Glycol 3350 17 GM Packet PO SCH (10:13)
[2020-06-17] MEDS: cefTRIAXone\\ROCEPHIN 1 GM in Sodium Chloride 0.9% 100 ML IVPB SCH (11:43)
[2020-06-17] MEDS: Enoxaparin Sodium 40 MG/0.4 ML SYRINGE SC SCH (11:44)
[2020-06-17] MEDS: Aspirin 81 mg Enteric Coated Tablet PO SCH (11:45)
[2020-06-17] MEDS: diphenhydrAMINE 25 MG CAP PO PRN (12:24)
[2020-06-17] MEDS: HumaLOG 300 UNITS/3 ML VIAL SC PRN ×2 (12:30→20:15)
[2020-06-17] MEDS: Atorvastatin Calcium 40 MG TAB PO SCH (20:10)
[2020-06-17] MEDS: Tamsulosin HCl 0.4 MG CAP PO SCH (20:14)
[2020-06-17] MEDS: Zolpidem Tartrate 5 MG TAB PO SCH (22:30)
[2020-06-18] MEDS: Vancomycin 1.5 GRAM/300 ML BAG 1.5 GM in Premix Bag 1 BAG IVPB SCH ×2 (00:51→13:03)
[2020-06-18] MEDS: HYDROcodone/Acetaminophen 7.5/325 mg Tablet PO PRN ×4 (03:10→19:35)
[2020-06-18] MEDS: Levothyroxine Sodium 100 MCG TAB PO SCH (05:58)
[2020-06-18] MEDS: Levothyroxine Sodium 75 MCG TAB PO SCH (05:58)
[2020-06-18] MEDS: Pioglitazone HCl 15 MG TAB PO SCH (08:35)
[2020-06-18] MEDS: Aspirin 81 mg Enteric Coated Tablet PO SCH (08:35)
[2020-06-18] MEDS: Finasteride 5 MG TAB PO SCH (08:35)
[2020-06-18] MEDS: Thiamine 100 MG TAB PO SCH (08:35)
[2020-06-18] MEDS: Famotidine 20 MG TAB PO SCH ×2 (08:36→21:57)
[2020-06-18] MEDS: Multivitamin W/ Minerals 1 TAB PO SCH (08:36)
[2020-06-18] MEDS: Lisinopril 20 MG TAB PO SCH ×2 (08:36→21:57)
[2020-06-18] MEDS: Escitalopram Oxalate 20 mg Tablet PO SCH (08:36)
[2020-06-18] MEDS: Folic Acid 1 MG TAB PO SCH (08:36)
[2020-06-18] MEDS: Amlodipine 5 MG TAB PO SCH (08:37)
[2020-06-18] MEDS: Enoxaparin Sodium 40 MG/0.4 ML SYRINGE SC SCH (08:37)
[2020-06-18] MEDS: busPIRone HCl 5 MG TAB PO SCH ×2 (08:38→21:56)
[2020-06-18] MEDS: Polyethylene Glycol 3350 17 GM Packet PO SCH (08:42)
[2020-06-18] MEDS: Senokot S 8.6-50 MG TAB PO SCH ×2 (08:42→21:59)
[2020-06-18] MEDS: Lantus 1000 UNITS/10 ML VIAL SC SCH ×2 (08:43→22:04)
[2020-06-18] MEDS: cefTRIAXone\\ROCEPHIN 1 GM in Sodium Chloride 0.9% 100 ML IVPB SCH (12:29)
[2020-06-18] MEDS: HumaLOG 300 UNITS/3 ML VIAL SC PRN (16:50)
[2020-06-18] MEDS: Tamsulosin HCl 0.4 MG CAP PO SCH (21:56)
[2020-06-18] MEDS: Atorvastatin Calcium 40 MG TAB PO SCH (21:57)
[2020-06-18] MEDS: diphenhydrAMINE 25 MG CAP PO PRN (21:57)
[2020-06-18] MEDS: Zolpidem Tartrate 5 MG TAB PO SCH (21:57)
[2020-06-19] MEDS: HYDROcodone/Acetaminophen 7.5/325 mg Tablet PO PRN ×5 (00:14→21:13)
[2020-06-19] MEDS: Vancomycin 1.5 GRAM/300 ML BAG 1.5 GM in Premix Bag 1 BAG IVPB SCH (00:15)
[2020-06-19] MEDS: Levothyroxine Sodium 100 MCG TAB PO SCH (05:32)
[2020-06-19] MEDS: Levothyroxine Sodium 75 MCG TAB PO SCH (05:32)
[2020-06-19] MEDS: HumaLOG 300 UNITS/3 ML VIAL SC PRN ×3 (05:36→17:09)
[2020-06-19] MEDS: Finasteride 5 MG TAB PO SCH (08:14)
[2020-06-19] MEDS: busPIRone HCl 5 MG TAB PO SCH ×2 (08:14→21:13)
[2020-06-19] MEDS: Famotidine 20 MG TAB PO SCH ×2 (08:14→21:13)
[2020-06-19] MEDS: Thiamine 100 MG TAB PO SCH (08:14)
[2020-06-19] MEDS: Multivitamin W/ Minerals 1 TAB PO SCH (08:15)
[2020-06-19] MEDS: Lisinopril 20 MG TAB PO SCH ×2 (08:15→21:12)
[2020-06-19] MEDS: Pioglitazone HCl 15 MG TAB PO SCH (08:15)
[2020-06-19] MEDS: Aspirin 81 mg Enteric Coated Tablet PO SCH (08:15)
[2020-06-19] MEDS: Folic Acid 1 MG TAB PO SCH (08:15)
[2020-06-19] MEDS: Amlodipine 5 MG TAB PO SCH (08:15)
[2020-06-19] MEDS: Enoxaparin Sodium 40 MG/0.4 ML SYRINGE SC SCH (08:16)
[2020-06-19] MEDS: Escitalopram Oxalate 20 mg Tablet PO SCH ×2 (08:16→12:04)
[2020-06-19] MEDS: Senokot S 8.6-50 MG TAB PO SCH ×2 (08:17→21:12)
[2020-06-19] MEDS: Polyethylene Glycol 3350 17 GM Packet PO SCH (08:17)
[2020-06-19] MEDS: Lantus 1000 UNITS/10 ML VIAL SC SCH ×2 (08:17→21:10)
[2020-06-19] MEDS: Morphine 4 MG/ML VIAL SLOW IVP PRN (13:33)
[2020-06-19] MEDS: Zolpidem Tartrate 5 MG TAB PO SCH (21:13)
[2020-06-19] MEDS: Tamsulosin HCl 0.4 MG CAP PO SCH (21:13)
[2020-06-19] MEDS: diphenhydrAMINE 25 MG CAP PO PRN (21:13)
[2020-06-19] MEDS: Atorvastatin Calcium 40 MG TAB PO SCH (21:13)
[2020-06-20] MEDS: HYDROcodone/Acetaminophen 7.5/325 mg Tablet PO PRN ×5 (01:13→20:43)
[2020-06-20] MEDS: Levothyroxine Sodium 100 MCG TAB PO SCH (05:35)
[2020-06-20] MEDS: Levothyroxine Sodium 75 MCG TAB PO SCH (05:35)
[2020-06-20] MEDS: Lantus 1000 UNITS/10 ML VIAL SC SCH ×2 (08:24→20:48)
[2020-06-20] MEDS: Escitalopram Oxalate 20 mg Tablet PO SCH (08:29)
[2020-06-20] MEDS: Enoxaparin Sodium 40 MG/0.4 ML SYRINGE SC SCH (08:29)
[2020-06-20] MEDS: Folic Acid 1 MG TAB PO SCH (08:30)
[2020-06-20] MEDS: busPIRone HCl 5 MG TAB PO SCH ×2 (08:31→20:43)
[2020-06-20] MEDS: Pioglitazone HCl 15 MG TAB PO SCH (08:31)
[2020-06-20] MEDS: Multivitamin W/ Minerals 1 TAB PO SCH (08:32)
[2020-06-20] MEDS: Thiamine 100 MG TAB PO SCH (08:32)
[2020-06-20] MEDS: Amlodipine 5 MG TAB PO SCH (08:33)
[2020-06-20] MEDS: Lisinopril 20 MG TAB PO SCH ×2 (08:34→20:44)
[2020-06-20] MEDS: Famotidine 20 MG TAB PO SCH ×2 (08:35→20:51)
[2020-06-20] MEDS: Polyethylene Glycol 3350 17 GM Packet PO SCH (08:35)
[2020-06-20] MEDS: Aspirin 81 mg Enteric Coated Tablet PO SCH (08:35)
[2020-06-20] MEDS: Senokot S 8.6-50 MG TAB PO SCH ×2 (08:36→20:45)
[2020-06-20] MEDS: Finasteride 5 MG TAB PO SCH (08:49)
[2020-06-20] MEDS: HumaLOG 300 UNITS/3 ML VIAL SC PRN ×2 (12:46→16:57)
[2020-06-20] MEDS: diphenhydrAMINE 25 MG CAP PO PRN (20:20)
[2020-06-20] MEDS: Atorvastatin Calcium 40 MG TAB PO SCH (20:42)
[2020-06-20] MEDS: Tamsulosin HCl 0.4 MG CAP PO SCH (20:44)
[2020-06-20] MEDS: Zolpidem Tartrate 5 MG TAB PO SCH (23:05)
[2020-06-21] MEDS: HYDROcodone/Acetaminophen 7.5/325 mg Tablet PO PRN ×5 (01:07→20:37)
[2020-06-21] MEDS: Levothyroxine Sodium 75 MCG TAB PO SCH (05:12)
[2020-06-21] MEDS: Levothyroxine Sodium 100 MCG TAB PO SCH (05:13)
[2020-06-21] MEDS: Amlodipine 5 MG TAB PO SCH (09:56)
[2020-06-21] MEDS: Famotidine 20 MG TAB PO SCH ×2 (09:56→20:35)
[2020-06-21] MEDS: Thiamine 100 MG TAB PO SCH (09:56)
[2020-06-21] MEDS: diphenhydrAMINE 25 MG CAP PO PRN (09:56)
[2020-06-21] MEDS: Folic Acid 1 MG TAB PO SCH (09:56)
[2020-06-21] MEDS: Aspirin 81 mg Enteric Coated Tablet PO SCH (09:57)
[2020-06-21] MEDS: Escitalopram Oxalate 20 mg Tablet PO SCH (09:57)
[2020-06-21] MEDS: Pioglitazone HCl 15 MG TAB PO SCH (09:57)
[2020-06-21] MEDS: busPIRone HCl 5 MG TAB PO SCH ×2 (09:57→20:34)
[2020-06-21] MEDS: Multivitamin W/ Minerals 1 TAB PO SCH (09:58)
[2020-06-21] MEDS: Finasteride 5 MG TAB PO SCH (09:58)
[2020-06-21] MEDS: Lisinopril 20 MG TAB PO SCH ×2 (09:58→20:35)
[2020-06-21] MEDS: Senokot S 8.6-50 MG TAB PO SCH ×2 (09:59→20:35)
[2020-06-21] MEDS: Lantus 1000 UNITS/10 ML VIAL SC SCH ×2 (09:59→20:40)
[2020-06-21] MEDS: Polyethylene Glycol 3350 17 GM Packet PO SCH (09:59)
[2020-06-21] MEDS: Enoxaparin Sodium 40 MG/0.4 ML SYRINGE SC SCH (09:59)
[2020-06-21] MEDS: HumaLOG 300 UNITS/3 ML VIAL SC PRN (17:43)
[2020-06-21] MEDS: Atorvastatin Calcium 40 MG TAB PO SCH (20:34)
[2020-06-21] MEDS: Tamsulosin HCl 0.4 MG CAP PO SCH (20:34)
[2020-06-21] MEDS: Zolpidem Tartrate 5 MG TAB PO SCH (22:20)
[2020-06-22] MEDS: HYDROcodone/Acetaminophen 7.5/325 mg Tablet PO PRN ×5 (00:53→20:20)
[2020-06-22] MEDS: Levothyroxine Sodium 75 MCG TAB PO SCH (05:39)
[2020-06-22] MEDS: Levothyroxine Sodium 100 MCG TAB PO SCH (05:39)
[2020-06-22] MEDS: Finasteride 5 MG TAB PO SCH (09:02)
[2020-06-22] MEDS: Multivitamin W/ Minerals 1 TAB PO SCH (09:02)
[2020-06-22] MEDS: Lisinopril 20 MG TAB PO SCH ×2 (09:02→20:16)
[2020-06-22] MEDS: Aspirin 81 mg Enteric Coated Tablet PO SCH (09:02)
[2020-06-22] MEDS: Thiamine 100 MG TAB PO SCH (09:03)
[2020-06-22] MEDS: Famotidine 20 MG TAB PO SCH ×2 (09:03→20:16)
[2020-06-22] MEDS: Amlodipine 5 MG TAB PO SCH (09:03)
[2020-06-22] MEDS: diphenhydrAMINE 25 MG CAP PO PRN (09:03)
[2020-06-22] MEDS: Pioglitazone HCl 15 MG TAB PO SCH (09:04)
[2020-06-22] MEDS: Folic Acid 1 MG TAB PO SCH (09:04)
[2020-06-22] MEDS: busPIRone HCl 5 MG TAB PO SCH ×2 (09:04→20:16)
[2020-06-22] MEDS: Escitalopram Oxalate 20 mg Tablet PO SCH (09:04)
[2020-06-22] MEDS: Enoxaparin Sodium 40 MG/0.4 ML SYRINGE SC SCH (09:05)
[2020-06-22] MEDS: Senokot S 8.6-50 MG TAB PO SCH ×2 (09:06→20:17)
[2020-06-22] MEDS: Polyethylene Glycol 3350 17 GM Packet PO SCH (09:06)
[2020-06-22] MEDS: Lantus 1000 UNITS/10 ML VIAL SC SCH ×2 (09:06→20:17)
[2020-06-22] MEDS: Atorvastatin Calcium 40 MG TAB PO SCH (20:16)
[2020-06-22] MEDS: Tamsulosin HCl 0.4 MG CAP PO SCH (20:16)
[2020-06-22] MEDS: Zolpidem Tartrate 5 MG TAB PO SCH (22:33)
[2020-06-23] MEDS: HYDROcodone/Acetaminophen 7.5/325 mg Tablet PO PRN ×5 (01:02→20:11)
[2020-06-23] MEDS: Levothyroxine Sodium 100 MCG TAB PO SCH (05:29)
[2020-06-23] MEDS: Levothyroxine Sodium 75 MCG TAB PO SCH (05:29)
[2020-06-23] MEDS: Amlodipine 5 MG TAB PO SCH (09:02)
[2020-06-23] MEDS: Aspirin 81 mg Enteric Coated Tablet PO SCH (09:03)
[2020-06-23] MEDS: busPIRone HCl 5 MG TAB PO SCH ×2 (09:03→20:11)
[2020-06-23] MEDS: Enoxaparin Sodium 40 MG/0.4 ML SYRINGE SC SCH (09:04)
[2020-06-23] MEDS: Pioglitazone HCl 15 MG TAB PO SCH (09:04)
[2020-06-23] MEDS: Lantus 1000 UNITS/10 ML VIAL SC SCH ×2 (09:05→20:15)
[2020-06-23] MEDS: Finasteride 5 MG TAB PO SCH (09:05)
[2020-06-23] MEDS: Folic Acid 1 MG TAB PO SCH (09:05)
[2020-06-23] MEDS: Escitalopram Oxalate 20 mg Tablet PO SCH (09:05)
[2020-06-23] MEDS: Famotidine 20 MG TAB PO SCH ×2 (09:05→20:11)
[2020-06-23] MEDS: Multivitamin W/ Minerals 1 TAB PO SCH (09:06)
[2020-06-23] MEDS: Lisinopril 20 MG TAB PO SCH ×2 (09:06→20:12)
[2020-06-23] MEDS: Polyethylene Glycol 3350 17 GM Packet PO SCH (09:07)
[2020-06-23] MEDS: Thiamine 100 MG TAB PO SCH (09:07)
[2020-06-23] MEDS: Senokot S 8.6-50 MG TAB PO SCH ×2 (09:07→20:14)
[2020-06-23] MEDS: Morphine 4 MG/ML VIAL SLOW IVP PRN (10:07)
[2020-06-23] MEDS: HumaLOG 300 UNITS/3 ML VIAL SC PRN ×2 (12:03→17:15)
[2020-06-23] MEDS: Atorvastatin Calcium 40 MG TAB PO SCH (20:12)
[2020-06-23] MEDS: Nystatin Powder 15 GM BOT TOP SCH (20:12)
[2020-06-23] MEDS: Tamsulosin HCl 0.4 MG CAP PO SCH (20:14)
[2020-06-23] MEDS: diphenhydrAMINE 25 MG CAP PO PRN (21:45)
[2020-06-23] MEDS: Zolpidem Tartrate 5 MG TAB PO SCH (21:45)
[2020-06-24] MEDS: HYDROcodone/Acetaminophen 7.5/325 mg Tablet PO PRN ×5 (00:26→19:21)
[2020-06-24] MEDS: Levothyroxine Sodium 100 MCG TAB PO SCH (05:33)
[2020-06-24] MEDS: Levothyroxine Sodium 75 MCG TAB PO SCH (05:34)
[2020-06-24] MEDS: Amlodipine 5 MG TAB PO SCH (08:34)
[2020-06-24] MEDS: Enoxaparin Sodium 40 MG/0.4 ML SYRINGE SC SCH (08:35)
[2020-06-24] MEDS: busPIRone HCl 5 MG TAB PO SCH ×2 (08:35→20:22)
[2020-06-24] MEDS: Aspirin 81 mg Enteric Coated Tablet PO SCH (08:35)
[2020-06-24] MEDS: Escitalopram Oxalate 20 mg Tablet PO SCH (08:36)
[2020-06-24] MEDS: Pioglitazone HCl 15 MG TAB PO SCH (08:36)
[2020-06-24] MEDS: Famotidine 20 MG TAB PO SCH ×2 (08:36→20:23)
[2020-06-24] MEDS: Folic Acid 1 MG TAB PO SCH (08:36)
[2020-06-24] MEDS: Finasteride 5 MG TAB PO SCH (08:36)
[2020-06-24] MEDS: Lisinopril 20 MG TAB PO SCH ×2 (08:37→20:22)
[2020-06-24] MEDS: Multivitamin W/ Minerals 1 TAB PO SCH (08:37)
[2020-06-24] MEDS: Lantus 1000 UNITS/10 ML VIAL SC SCH ×2 (08:37→20:23)
[2020-06-24] MEDS: Nystatin Powder 15 GM BOT TOP SCH ×2 (08:37→20:27)
[2020-06-24] MEDS: Polyethylene Glycol 3350 17 GM Packet PO SCH (08:38)
[2020-06-24] MEDS: Thiamine 100 MG TAB PO SCH (08:38)
[2020-06-24] MEDS: Senokot S 8.6-50 MG TAB PO SCH ×2 (08:38→20:23)
[2020-06-24] MEDS: HumaLOG 300 UNITS/3 ML VIAL SC PRN ×2 (12:21→17:31)
[2020-06-24] MEDS: Zolpidem Tartrate 5 MG TAB PO SCH (20:22)
[2020-06-24] MEDS: diphenhydrAMINE 25 MG CAP PO PRN (20:22)
[2020-06-24] MEDS: Atorvastatin Calcium 40 MG TAB PO SCH (20:23)
[2020-06-24] MEDS: Tamsulosin HCl 0.4 MG CAP PO SCH (20:23)
[2020-06-25] MEDS: HYDROcodone/Acetaminophen 7.5/325 mg Tablet PO PRN ×5 (02:17→21:21)
[2020-06-25 05:32] LABS: #Basophils 0.1 thou/uL (0.0-0.2); #Eosinphils 0.2 thou/uL (0.0-0.7); #Lymphocytes 1.3 thou/uL (1.20-3.40); #Monocytes 0.9 thou/uL (0.11-0.59); #Neutrophils 3.2 thou/uL (1.40-6.50); %Basophils 1.8 % (0.0-1.0); %Eosinophils 4.3 % (0.0-10.0); %Lymphocytes 22.8 % (21.0-51.0); %Monocytes 15.4 % (0.0-10.0); %Neutrophils 55.7 % (42.0-75.0); Hemoglobin 9.6 g/dL (14.0-18.0); Mean Corpuscular HGB CONC 30.5 g/dL (32.0-36.0); Mean Corpuscular Hemoglobin 28.1 pg (27.0-31.0); Mean Corpuscular Volume 92.3 fL (78.0-98.0); Mean Platelet Volume 7.2 fL (7.4-10.4); Platelet Count 207 thou/uL (130-400); RBC Distribution Width 13.8 % (11.5-14.5); Red Blood Cell (RBC) Count 3.42 mill/uL (4.70-6.10); White Blood Cell (WBC) Count 5.7 thou/uL (4.8-10.8)
[2020-06-25 05:45] LABS: Anion Gap 13 mmol/L (10-20); BUN (Urea Nitrogen) 25 mg/dL (8.4-25.7); Calc. Creatinine Clearance 143 mL/min (70-130); Calcium 9.2 mg/dL (7.8-10.44); Carbon Dioxide 24 mmol/L (23-31); Chloride 98 mmol/L (98-107); Glucose 140 mg/dL (80-115); Sodium 131 mmol/L (136-145)
[2020-06-25] MEDS: Levothyroxine Sodium 100 MCG TAB PO SCH (06:21)
[2020-06-25] MEDS: Levothyroxine Sodium 75 MCG TAB PO SCH (06:21)
[2020-06-25] MEDS: Aspirin 81 mg Enteric Coated Tablet PO SCH (09:29)
[2020-06-25] MEDS: Famotidine 20 MG TAB PO SCH ×2 (09:29→21:22)
[2020-06-25] MEDS: Multivitamin W/ Minerals 1 TAB PO SCH (09:29)
[2020-06-25] MEDS: Finasteride 5 MG TAB PO SCH (09:29)
[2020-06-25] MEDS: Pioglitazone HCl 15 MG TAB PO SCH (09:30)
[2020-06-25] MEDS: Folic Acid 1 MG TAB PO SCH (09:30)
[2020-06-25] MEDS: busPIRone HCl 5 MG TAB PO SCH ×2 (09:30→21:23)
[2020-06-25] MEDS: Lisinopril 20 MG TAB PO SCH ×2 (09:31→21:24)
[2020-06-25] MEDS: Escitalopram Oxalate 20 mg Tablet PO SCH (09:32)
[2020-06-25] MEDS: Amlodipine 5 MG TAB PO SCH (09:32)
[2020-06-25] MEDS: Nystatin Powder 15 GM BOT TOP SCH ×2 (09:34→21:32)
[2020-06-25] MEDS: Polyethylene Glycol 3350 17 GM Packet PO SCH (09:35)
[2020-06-25] MEDS: Thiamine 100 MG TAB PO SCH (09:35)
[2020-06-25] MEDS: Senokot S 8.6-50 MG TAB PO SCH ×2 (09:35→21:22)
[2020-06-25] MEDS: Enoxaparin Sodium 40 MG/0.4 ML SYRINGE SC SCH (09:36)
[2020-06-25] MEDS: Lantus 1000 UNITS/10 ML VIAL SC SCH ×2 (09:36→21:24)
[2020-06-25] MEDS: HumaLOG 300 UNITS/3 ML VIAL SC PRN ×2 (12:07→17:26)
[2020-06-25] MEDS: Zolpidem Tartrate 5 MG TAB PO SCH (21:22)
[2020-06-25] MEDS: diphenhydrAMINE 25 MG CAP PO PRN (21:22)
[2020-06-25] MEDS: Tamsulosin HCl 0.4 MG CAP PO SCH (21:23)
[2020-06-25] MEDS: Atorvastatin Calcium 40 MG TAB PO SCH (21:24)
[2020-06-26] MEDS: HYDROcodone/Acetaminophen 7.5/325 mg Tablet PO PRN ×5 (01:57→20:33)
[2020-06-26] MEDS: Levothyroxine Sodium 75 MCG TAB PO SCH (05:55)
[2020-06-26] MEDS: Levothyroxine Sodium 100 MCG TAB PO SCH (05:55)
[2020-06-26] MEDS: Polyethylene Glycol 3350 17 GM Packet PO SCH (08:44)
[2020-06-26] MEDS: Enoxaparin Sodium 40 MG/0.4 ML SYRINGE SC SCH (08:44)
[2020-06-26] MEDS: Lantus 1000 UNITS/10 ML VIAL SC SCH ×2 (08:44→20:29)
[2020-06-26] MEDS: Nystatin Powder 15 GM BOT TOP SCH ×2 (08:45→20:27)
[2020-06-26] MEDS: Amlodipine 5 MG TAB PO SCH (08:45)
[2020-06-26] MEDS: Multivitamin W/ Minerals 1 TAB PO SCH (08:46)
[2020-06-26] MEDS: busPIRone HCl 5 MG TAB PO SCH ×2 (08:46→20:28)
[2020-06-26] MEDS: Escitalopram Oxalate 20 mg Tablet PO SCH (08:46)
[2020-06-26] MEDS: Lisinopril 20 MG TAB PO SCH ×2 (08:46→20:29)
[2020-06-26] MEDS: Folic Acid 1 MG TAB PO SCH (08:46)
[2020-06-26] MEDS: Pioglitazone HCl 15 MG TAB PO SCH (08:46)
[2020-06-26] MEDS: Aspirin 81 mg Enteric Coated Tablet PO SCH (08:46)
[2020-06-26] MEDS: Senokot S 8.6-50 MG TAB PO SCH ×2 (08:47→20:28)
[2020-06-26] MEDS: Finasteride 5 MG TAB PO SCH (08:47)
[2020-06-26] MEDS: Famotidine 20 MG TAB PO SCH ×2 (08:47→20:28)
[2020-06-26] MEDS: Thiamine 100 MG TAB PO SCH (08:47)
[2020-06-26] MEDS: HumaLOG 300 UNITS/3 ML VIAL SC PRN (12:26)
[2020-06-26] MEDS: Tamsulosin HCl 0.4 MG CAP PO SCH (20:28)
[2020-06-26] MEDS: Atorvastatin Calcium 40 MG TAB PO SCH (20:28)
[2020-06-26] MEDS: diphenhydrAMINE 25 MG CAP PO PRN (22:36)
[2020-06-26] MEDS: Zolpidem Tartrate 5 MG TAB PO SCH (22:36)
[2020-06-27] MEDS: HYDROcodone/Acetaminophen 7.5/325 mg Tablet PO PRN ×4 (02:06→19:00)
[2020-06-27] MEDS: Levothyroxine Sodium 100 MCG TAB PO SCH (05:20)
[2020-06-27] MEDS: Levothyroxine Sodium 75 MCG TAB PO SCH (05:20)
[2020-06-27] MEDS: Pioglitazone HCl 15 MG TAB PO SCH (09:12)
[2020-06-27] MEDS: Multivitamin W/ Minerals 1 TAB PO SCH (09:12)
[2020-06-27] MEDS: Folic Acid 1 MG TAB PO SCH (09:12)
[2020-06-27] MEDS: Famotidine 20 MG TAB PO SCH ×2 (09:13→20:40)
[2020-06-27] MEDS: Escitalopram Oxalate 20 mg Tablet PO SCH (09:13)
[2020-06-27] MEDS: Finasteride 5 MG TAB PO SCH (09:13)
[2020-06-27] MEDS: Thiamine 100 MG TAB PO SCH (09:13)
[2020-06-27] MEDS: Lisinopril 20 MG TAB PO SCH ×2 (09:13→20:41)
[2020-06-27] MEDS: Aspirin 81 mg Enteric Coated Tablet PO SCH (09:13)
[2020-06-27] MEDS: Amlodipine 5 MG TAB PO SCH (09:13)
[2020-06-27] MEDS: busPIRone HCl 5 MG TAB PO SCH ×2 (09:13→20:40)
[2020-06-27] MEDS: Enoxaparin Sodium 40 MG/0.4 ML SYRINGE SC SCH (09:14)
[2020-06-27] MEDS: Lantus 1000 UNITS/10 ML VIAL SC SCH ×2 (09:14→20:45)
[2020-06-27] MEDS: Polyethylene Glycol 3350 17 GM Packet PO SCH (11:18)
[2020-06-27] MEDS: Nystatin Powder 15 GM BOT TOP SCH ×2 (11:18→20:43)
[2020-06-27] MEDS: Senokot S 8.6-50 MG TAB PO SCH ×2 (11:18→20:41)
[2020-06-27] MEDS: HumaLOG 300 UNITS/3 ML VIAL SC PRN (12:39)
[2020-06-27] MEDS ORDERED: HYDROcodone/Acetaminophen 5/325 mg Tablet PO SCH (13:15)
[2020-06-27] MEDS ORDERED: HYDROcodone/Acetaminophen 7.5/325 mg Tablet ONE (13:20)
[2020-06-27] MEDS: Tamsulosin HCl 0.4 MG CAP PO SCH (20:40)
[2020-06-27] MEDS: Atorvastatin Calcium 40 MG TAB PO SCH (20:40)
[2020-06-27] MEDS: diphenhydrAMINE 25 MG CAP PO PRN (22:39)
[2020-06-27] MEDS: Zolpidem Tartrate 5 MG TAB PO SCH (22:39)
[2020-06-28] MEDS: HYDROcodone/Acetaminophen 7.5/325 mg Tablet PO PRN ×5 (00:26→23:38)
[2020-06-28] MEDS: Levothyroxine Sodium 75 MCG TAB PO SCH (05:25)
[2020-06-28] MEDS: Levothyroxine Sodium 100 MCG TAB PO SCH (05:26)
[2020-06-28] MEDS: Nystatin Powder 15 GM BOT TOP SCH ×2 (09:07→20:56)
[2020-06-28] MEDS: Lisinopril 20 MG TAB PO SCH ×2 (09:08→20:49)
[2020-06-28] MEDS: Thiamine 100 MG TAB PO SCH (09:08)
[2020-06-28] MEDS: Finasteride 5 MG TAB PO SCH (09:08)
[2020-06-28] MEDS: Folic Acid 1 MG TAB PO SCH (09:08)
[2020-06-28] MEDS: Multivitamin W/ Minerals 1 TAB PO SCH (09:08)
[2020-06-28] MEDS: Aspirin 81 mg Enteric Coated Tablet PO SCH (09:08)
[2020-06-28] MEDS: Famotidine 20 MG TAB PO SCH ×2 (09:08→20:49)
[2020-06-28] MEDS: Pioglitazone HCl 15 MG TAB PO SCH (09:08)
[2020-06-28] MEDS: Escitalopram Oxalate 20 mg Tablet PO SCH (09:09)
[2020-06-28] MEDS: Amlodipine 5 MG TAB PO SCH (09:09)
[2020-06-28] MEDS: busPIRone HCl 5 MG TAB PO SCH ×2 (09:09→20:48)
[2020-06-28] MEDS: Lantus 1000 UNITS/10 ML VIAL SC SCH ×2 (09:10→20:49)
[2020-06-28] MEDS: Enoxaparin Sodium 40 MG/0.4 ML SYRINGE SC SCH (09:10)
[2020-06-28] MEDS: Polyethylene Glycol 3350 17 GM Packet PO SCH (11:33)
[2020-06-28] MEDS: Senokot S 8.6-50 MG TAB PO SCH ×2 (11:33→20:48)
[2020-06-28] MEDS: Zolpidem Tartrate 5 MG TAB PO SCH (20:49)
[2020-06-28] MEDS: Tamsulosin HCl 0.4 MG CAP PO SCH (20:49)
[2020-06-28] MEDS: Atorvastatin Calcium 40 MG TAB PO SCH (20:49)
[2020-06-28] MEDS: diphenhydrAMINE 25 MG CAP PO PRN (23:38)
[2020-06-29] MEDS: Levothyroxine Sodium 75 MCG TAB PO SCH (05:34)
[2020-06-29] MEDS: Levothyroxine Sodium 100 MCG TAB PO SCH (05:34)
[2020-06-29] MEDS: HYDROcodone/Acetaminophen 7.5/325 mg Tablet PO PRN ×5 (06:03→23:59)
[2020-06-29] MEDS: Senokot S 8.6-50 MG TAB PO SCH ×2 (09:57→20:12)
[2020-06-29] MEDS: Pioglitazone HCl 15 MG TAB PO SCH (09:57)
[2020-06-29] MEDS: Famotidine 20 MG TAB PO SCH ×2 (09:57→20:12)
[2020-06-29] MEDS: Aspirin 81 mg Enteric Coated Tablet PO SCH (09:58)
[2020-06-29] MEDS: Thiamine 100 MG TAB PO SCH (09:58)
[2020-06-29] MEDS: Folic Acid 1 MG TAB PO SCH (09:58)
[2020-06-29] MEDS: busPIRone HCl 5 MG TAB PO SCH ×2 (09:58→20:11)
[2020-06-29] MEDS: Amlodipine 5 MG TAB PO SCH (09:58)
[2020-06-29] MEDS: Finasteride 5 MG TAB PO SCH (09:59)
[2020-06-29] MEDS: Enoxaparin Sodium 40 MG/0.4 ML SYRINGE SC SCH (09:59)
[2020-06-29] MEDS: Nystatin Powder 15 GM BOT TOP SCH ×2 (09:59→20:09)
[2020-06-29] MEDS: Multivitamin W/ Minerals 1 TAB PO SCH (09:59)
[2020-06-29] MEDS: Lisinopril 20 MG TAB PO SCH ×2 (09:59→20:12)
[2020-06-29] MEDS: Escitalopram Oxalate 20 mg Tablet PO SCH (09:59)
[2020-06-29] MEDS: Polyethylene Glycol 3350 17 GM Packet PO SCH (10:00)
[2020-06-29] MEDS: Lantus 1000 UNITS/10 ML VIAL SC SCH ×2 (10:08→20:10)
[2020-06-29] MEDS: HumaLOG 300 UNITS/3 ML VIAL SC PRN ×2 (12:27→17:16)
[2020-06-29] MEDS: Atorvastatin Calcium 40 MG TAB PO SCH (20:11)
[2020-06-29] MEDS: Zolpidem Tartrate 5 MG TAB PO SCH (20:11)
[2020-06-29] MEDS: Tamsulosin HCl 0.4 MG CAP PO SCH (20:12)
[2020-06-29] MEDS: diphenhydrAMINE 25 MG CAP PO PRN (23:58)
[2020-06-30 01:32] VITALS: BMI 34.4
[2020-06-30] MEDS: Levothyroxine Sodium 100 MCG TAB PO SCH (05:17)
[2020-06-30] MEDS: Levothyroxine Sodium 75 MCG TAB PO SCH (05:17)
[2020-06-30] MEDS: HYDROcodone/Acetaminophen 7.5/325 mg Tablet PO PRN ×5 (05:17→20:57)
[2020-06-30] MEDS: Enoxaparin Sodium 40 MG/0.4 ML SYRINGE SC SCH (08:40)
[2020-06-30] MEDS: Polyethylene Glycol 3350 17 GM Packet PO SCH (08:41)
[2020-06-30] MEDS: Lantus 1000 UNITS/10 ML VIAL SC SCH ×2 (08:41→20:55)
[2020-06-30] MEDS: Folic Acid 1 MG TAB PO SCH (08:41)
[2020-06-30] MEDS: Multivitamin W/ Minerals 1 TAB PO SCH (08:41)
[2020-06-30] MEDS: Famotidine 20 MG TAB PO SCH ×2 (08:42→20:56)
[2020-06-30] MEDS: Lisinopril 20 MG TAB PO SCH ×2 (08:42→20:56)
[2020-06-30] MEDS: Finasteride 5 MG TAB PO SCH (08:42)
[2020-06-30] MEDS: Aspirin 81 mg Enteric Coated Tablet PO SCH (08:42)
[2020-06-30] MEDS: Amlodipine 5 MG TAB PO SCH (08:42)
[2020-06-30] MEDS: Thiamine 100 MG TAB PO SCH (08:42)
[2020-06-30] MEDS: Pioglitazone HCl 15 MG TAB PO SCH (08:42)
[2020-06-30] MEDS: busPIRone HCl 5 MG TAB PO SCH ×2 (08:43→20:57)
[2020-06-30] MEDS: Escitalopram Oxalate 20 mg Tablet PO SCH (08:43)
[2020-06-30] MEDS: Senokot S 8.6-50 MG TAB PO SCH ×2 (08:44→20:56)
[2020-06-30] MEDS: Nystatin Powder 15 GM BOT TOP SCH ×2 (08:45→20:54)
[2020-06-30] MEDS: HumaLOG 300 UNITS/3 ML VIAL SC PRN ×2 (16:35→21:04)
[2020-06-30] MEDS: Atorvastatin Calcium 40 MG TAB PO SCH (20:56)
[2020-06-30] MEDS: diphenhydrAMINE 25 MG CAP PO PRN (20:56)
[2020-06-30] MEDS: Tamsulosin HCl 0.4 MG CAP PO SCH (20:57)
[2020-06-30] MEDS: Zolpidem Tartrate 5 MG TAB PO SCH (20:57)
[2020-07-01] MEDS: HYDROcodone/Acetaminophen 7.5/325 mg Tablet PO PRN (01:41)
[2020-07-01] MEDS: Levothyroxine Sodium 75 MCG TAB PO SCH (05:38)
[2020-07-01] MEDS: Levothyroxine Sodium 100 MCG TAB PO SCH (05:39)
[2020-07-01 07:56] VITALS: BP 105/52; TEMP 96.1
== END 2020-07-01 08:45 | disposition home health service (06) | DRG 603 ==
LOC: UNDOADMIN 20:15 → NAV ACUTE 20:15
PROVIDERS: ADMIT Family Medicine; ATTEND Family Medicine
DX: L02.412 Cutaneous abscess of left axilla (principal); I69.354 Hemiplegia and hemiparesis following cerebral infarction affecting left non-dominant side; R33.9 Retention of urine, unspecified; I10 Essential (primary) hypertension; E11.9 Type 2 diabetes mellitus without complications; I73.00 Raynaud's syndrome without gangrene; E78.5 Hyperlipidemia, unspecified; R53.81 Other malaise; F17.200 Nicotine dependence, unspecified, uncomplicated; E03.9 Hypothyroidism, unspecified; Z79.4 Long term (current) use of insulin; Z79.82 Long term (current) use of aspirin
CPT/HCPCS: 36415; 36416; 70450; 80048; 80202; 82947; 84443; 85025; 97602; J0696; J1650; J1815; J2270; J2405; J3370; J3490; J7050; Q0163